=== PATIENT | male | born 1970 | race Two or more races ===

== ENCOUNTER 2019-12-28 12:47 | Inpatient (IN) | payer OTHER ==
[~2019-12-28] VITALS: Ht 177.8 cm; Wt 77.1 kg
[2019-12-28] VITALS (7 sets, daily range): BP systolic 109–133; BP diastolic 70–91
[~2019-12-28 12:47] MED LIST: ASPIR 8181 MG ORAL; ATIVAN1 MG ORAL; ATORVASTATIN CA10 MG ORAL; DILANTIN100 MG ORAL; KEPPRA500 M4 ORAL; KLONOPIN0.5 MG ORAL; LACTULOSE20 GM/301 ORAL; METOPROLOL TART25 MG ORAL; OYSTER SHELL C1 EA13 PO; TAMSULOSIN HCL0.4 MG ORAL; TRILEPTAL150 M3 PO
--- NOTE | 2019-12-28 13:29 | Emergency Room Report ---
History of Present Illness General Chief Complaint: Seizure Source: Medical Record, EMS Present Illness HPI 49-year-old male who is DNR with comfort measures only presents to the emergency department sent by shelter facility for seizure and fever x1 day. Patient has history of seizures and takes Dilantin. Per [facility] the fever did not occur prior to the seizure. This patient has past medical history of encephalopathy epilepsy, hypertension, Parkinson's, BPH, hyperlipidemia and anxiety/psychosis. This patient takes Dilantin 100 mg 3 capsules once daily. Prior laboratory results that were sent with the patient' s paperwork dated on 12 20. The patient was having a low Dilantin level of 1.2. History of present illness and ROS are limited due to patient mental status as well as limited information provided by shelter facility. Allergies: Coded Allergies: No Known Allergies (Unverified , 05/07/16) COVID-19 Screening Contact w/high risk pt: No Recent Travel to affected area: No Experienced COVID-19 symptoms?: No Patient History Past Medical History: see triage record, HTN Pertinent Family History: none Reviewed Nursing Documentation: PMH: Agreed; PSxH: Agreed Nursing Documentation-PMH Past Medical History: No Stated History Hx Hypertension: Yes History Of Psychiatric Problem: Yes - anxiety Hx Neurological Problems: Yes - rt. craniotomy, encephalopathy, parkinsons Hx Seizures: Yes Review of Systems All Other Systems: negative except mentioned in HPI Physical Exam Vital Signs Date Time Temp Pulse Resp B/P (MAP) Pulse Ox O2 Delivery O2 Flow Rate FiO2 12/27/20 12:43 100.6 140 28 112/80 (91) 95 Nasal Cannula 4.0 Sp02 EP Interpretation: reviewed, normal General Appearance: no apparent distress, alert, GCS 15, non-toxic, Chronically Ill - bedbound Head: normocephalic, atraumatic Eyes: bilateral eye normal inspection, bilateral eye PERRL ENT: hearing grossly normal, normal voice Neck: limited range of motion, other - evidence of previous tracheotomy Respiratory: chest non-tender, lungs clear, normal breath sounds, speaking full sentences Cardiovascular #1: regular rate, rhythm, no edema, tachycardia Gastrointestinal: normal bowel sounds, soft Rectal: deferred Genitourinary: other - Pt. incontinent- in adult diaper Musculoskeletal: non-tender, other - limited ROM of the extremities, evidence of moderate muscle wasting. Neurologic: alert, sensory intact, responsive - will attempt to turn his face in direction of person talking when asked multiple times. Psychiatric: judgement/insight normal Skin: other - evidence of previous tracheotomy Lymphatic: no adenopathy Medical Decision Making PA Attestation Dr. Livingston Is my supervising Physician whom patient management has been discussed with. Diagnostic Impression: Primary Impression: Pneumonia Qualified Codes: J18.9 - Pneumonia, unspecified organism Additional Impressions: Seizure disorder Subtherapeutic phenytoin level Febrile illness, acute ER Course Pt. presents to the ED c/o and witnessed seizure earlier today. - Patient is diagnosed with epilepsy and takes Depakote Ddx considered but are not limited to seizure, meningitis, infection, CVA/TIA, intracranial hemorrhage, intracranial process, nontherapeutic level of medication, infection/sepsis, COVID-19, UTI Vital signs: PT. is Tachcyardic, rectal temp. of 100.2, Pt. O2 Sat was 91-92 RA, He was placed on 2.0 Liters Nasal Cannula which brought his saturation up to 95% H&PE are most consistent with status post seizure ORDERS: -COVID-19: Pending -CMP: unremarkable -CBC: unremarkable -Total CK: WNL -CRP: 6.5 - Depakote level: 5.4 ( not in therapeutic range) -Lactic Acid: 5.10, repeat was 1.6 -UA: Most indicative of contamination: presence of equal amounts of bacteria and squamous cells, no elevation in inflammatory markers, nitrite negative. -CXR: slight consolidation in the right lower lobe w. cardiomegaly. -EKbpm sinus tach. ED INTERVENTIONS: -1g Keppra IV -500mg Dilantin IV DISPOSITION: at this time pt. will be admitted to Dr. Whitfield for PNA possible COVID-19 & Seizure disorder uncontrolled. Dr. Whitfield agreed to admit the pt. and to continue pt. care management. Labs Test 12/28/19 13:20 12/28/19 14:01 12/28/19 14:37 White Blood Count 6.3 K/UL (4.8-10.8) Red Blood Count 5.92 M/UL (4.70-6.10) Hemoglobin 18.0 G/DL (14.2-18.0) Hematocrit 51.8 % (42.0-52.0) Mean Corpuscular Volume 87 FL (80-99) Mean Corpuscular Hemoglobin 30.4 PG (27.0-31.0) Mean Corpuscular Hemoglobin Concent 34.8 G/DL (32.0-36.0) Red Cell Distribution Width 11.6 % (11.6-14.8) Platelet Count 186 K/UL (150-450) Mean Platelet Volume 8.6 FL (6.5-10.1) Neutrophils (%) (Auto) 80.2 % (45.0-75.0) Lymphocytes (%) (Auto) 13.9 % (20.0-45.0) Monocytes (%) (Auto) 5.5 % (1.0-10.0) Eosinophils (%) (Auto) 0.0 % (0.0-3.0) Basophils (%) (Auto) 0.4 % (0.0-2.0) Sodium Level 140 MMOL/L (136-145) Potassium Level 3.8 MMOL/L (3.5-5.1) Chloride Level 100 MMOL/L (98-107) Carbon Dioxide Level 24 MMOL/L (21-32) Anion Gap 16 mmol/L (5-15) Blood Urea Nitrogen 12 mg/dL (7-18) Creatinine 1.2 MG/DL (0.55-1.30) Estimat Glomerular Filtration Rate > 60 mL/min (>60) Glucose Level 122 MG/DL (74-106) Calcium Level 9.4 MG/DL (8.5-10.1) Total Bilirubin 0.2 MG/DL (0.2-1.0) Aspartate Amino Transf (AST/SGOT) 21 U/L (15-37) Alanine Aminotransferase (ALT/SGPT) 28 U/L (12-78) Alkaline Phosphatase 130 U/L (46-116) Total Creatine Kinase 46 U/L (26-308) Troponin I 0.000 ng/mL (0.000-0.056) C-Reactive Protein, Quantitative 6.5 mg/dL (0.00-0.90) Total Protein 9.4 G/DL (6.4-8.2) Albumin 3.9 G/DL (3.4-5.0) Globulin 5.5 g/dL Albumin/Globulin Ratio 0.7 (1.0-2.7) Phenytoin (Dilantin) Level 5.4 ug/mL (10-20) Urine Color Yellow Urine Appearance Turbid Urine pH 6.0 (4.5-8.0) Urine Specific [place] 1.015 (1.005-1.035) Urine Protein 2+ (NEGATIVE) Urine Glucose (UA) Negative (NEGATIVE) Urine Ketones 1+ (NEGATIVE) Urine Blood 5+ (NEGATIVE) Urine Nitrite Negative (NEGATIVE) Urine Bilirubin Negative (NEGATIVE) Urine Urobilinogen Normal MG/DL (0.0-1.0) Urine Leukocyte Esterase Negative (NEGATIVE) Urine RBC 20-30 /HPF (0 - 0) Urine WBC 0-2 /HPF (0 - 0) Urine Squamous Epithelial Cells Occasional /LPF Urine Amorphous Sediment Many /LPF (NONE) Urine Bacteria Few /HPF (NONE) Lactic Acid Level 1.60 mmol/L (0.66-2.22) EKG Diagnostic Results EP Interpretation: Dr. Livingston Rate: tachycardiac - 127 bpm Rhythm: NSR ST Segments: no acute changes ASA given to the pt in ED: No PA Scribe Text This Interpretation was scribed by MIAN Cabrera. Chest X-Ray Diagnostic Results Chest X-Ray Diagnostic Results : Chest X-Ray Ordered: Yes # of Views/Limited/Complete: 1 View Indication: Shortness of Breath EP Interpretation: Yes PA Xray: Interpretation reviewed, by supervising MD, and agrees with findings. Interpretation: no effusion, no pneumothorax, no acute cardiopulmonary disease, other - RLL Consolidation with cardiomegaly Impression: Other Electronically Signed by: Nina Cabrera PA-C Last Vital Signs Date Time Temp Pulse Resp B/P (MAP) Pulse Ox O2 Delivery O2 Flow Rate FiO2 12/28/19 12:43 100.6 140 28 112/80 (91) 95 Nasal Cannula 4.0 Disposition: ADMITTED INPATIENT Condition: Serious Referrals: Kenji Lema MD (PCP) Nina Cabrera Dec 28, 2019 13:28
[2019-12-28 13:40] LABS: BASOPHILS % (AUTO) 0.4 % (0.0-2.0); HEMATOCRIT 51.8 % (42.0-52.0); LYMPHOCYTES % (AUTO) 13.9 % (20.0-45.0); MEAN CORPUSCULAR VOLUME 87 FL (80-99); MONOCYTES % (AUTO) 5.5 % (1.0-10.0); NEUTROPHILS % (AUTO) 80.2 % (45.0-75.0); PLATELET COUNT 186 K/UL (150-450); RED BLOOD COUNT 5.92 M/UL (4.70-6.10); RED CELL DISTRIBUTION WIDTH 11.6 % (11.6-14.8); WHITE BLOOD COUNT 6.3 K/UL (4.8-10.8)
[2019-12-28] MEDS ORDERED: levETIRAcetam 1,000mg/NS100ml 100 ML IVPB ONE (13:45)
[2019-12-28 14:01] LABS: ANION GAP 16 mmol/L (5-15); BLOOD UREA NITROGEN 12 mg/dL (7-18); CALCIUM 9.4 MG/DL (8.5-10.1); CARBON DIOXIDE 24 MMOL/L (21-32); CHLORIDE 100 MMOL/L (98-107); CREATININE 1.2 MG/DL (0.55-1.30); POTASSIUM 3.8 MMOL/L (3.5-5.1); SODIUM 140 MMOL/L (136-145)
[2019-12-28 14:05] LABS: ALANINE AMINOTRANSFERASE 28 U/L (12-78); ALBUMIN 3.9 G/DL (3.4-5.0); ALBUMIN/GLOBULIN RATIO 0.7 (1.0-2.7); ALKALINE PHOSPHATASE 130 U/L (46-116); ASPARTATE AMINO TRANSFERASE 21 U/L (15-37); BILIRUBIN,TOTAL 0.2 MG/DL (0.2-1.0); CREATINE KINASE 46 U/L (26-308)
--- NOTE | 2019-12-28 14:11 | Diagnostic Imaging Report ---
Indication: Chest pain Technique: XRAY Chest 1v Comparison: None Findings: Heart appears enlarged. Mediastinal contours are sharp. There is elevation of the right hemidiaphragm and streaky opacities at the right base. No pleural effusion or pneumothorax. No acute osseous abnormality. IMPRESSION: Elevation of the right hemidiaphragm with adjacent linear opacities at the right lung base which may be related to subsegmental atelectasis or scarring. Correlate clinically to exclude the possibility of subtle developing infectious infiltrate/pneumonia. Apparent cardiomegaly although heart size may be exaggerated by AP technique.
[2019-12-28 15:08] LABS: APPEARANCE,URINE TURBID; BILIRUBIN, URINE NEGATIVE (NEGATIVE); GLUCOSE, URINE (UA) NEGATIVE (NEGATIVE); KETONES,URINE 1+ (NEGATIVE); NITRITE,URINE NEGATIVE (NEGATIVE); UROBILINOGEN,URINE NORMAL MG/DL (0.0-1.0)
[2019-12-28] MEDS ORDERED: Azithromycin 500 MG in D5W 275 ML IVPB ONE (15:15)
[2019-12-28] MEDS ORDERED: Lidocaine 1% MPF 10mg/ml 5ml INJ ONE (15:15)
[2019-12-28 15:26] LABS: COLOR,URINE YELLOW
[2019-12-28 15:27] LABS: LEUKOCYTE ESTERASE ,URINE NEGATIVE (NEGATIVE); PROTEIN,URINE 2+ (NEGATIVE)
[2019-12-28] MEDS ORDERED: Acetaminophen 650 MG SUPP RECTAL ONE (15:30)
[2019-12-28] MEDS ORDERED: Phenytoin 500 MG in NS 110 ML IVPB ONE (17:15)
[2019-12-28 19:22] LABS: FERRITIN 194 NG/ML (8-388); LACTATE DEHYDROGENASE 147 U/L (81-234)
[2019-12-28] MEDS ORDERED: Vancomycin 1.5 GM in NS 275 ML IVPB ONE (21:30)
[2019-12-28] MEDS ORDERED: Vancomycin 1.5gm/NS Premix IVPB ONE (21:30)
[2019-12-29] MEDS ORDERED: Aztreonam Inj 2 GM in NS 110 ML IVPB SCH ×5 (01:00→04:00)
[2019-12-29 05:23] LABS: BASOPHILS % (AUTO) 0.4 % (0.0-2.0); EOSINOPHILS % (AUTO) 0.1 % (0.0-3.0); HEMATOCRIT 40.8 % (42.0-52.0); HEMOGLOBIN 14.6 G/DL (14.2-18.0); LYMPHOCYTES % (AUTO) 32.8 % (20.0-45.0); MEAN CORPUSCULAR VOLUME 87 FL (80-99); MONOCYTES % (AUTO) 13.6 % (1.0-10.0); NEUTROPHILS % (AUTO) 53.1 % (45.0-75.0); PLATELET COUNT 156 K/UL (150-450); RED CELL DISTRIBUTION WIDTH 11.5 % (11.6-14.8); WHITE BLOOD COUNT 5.3 K/UL (4.8-10.8)
[2019-12-29 05:55] LABS: ALANINE AMINOTRANSFERASE 28 U/L (12-78); ALBUMIN 3.2 G/DL (3.4-5.0); ALBUMIN/GLOBULIN RATIO 0.8 (1.0-2.7); ALKALINE PHOSPHATASE 93 U/L (46-116); ANION GAP 14 mmol/L (5-15); ASPARTATE AMINO TRANSFERASE 25 U/L (15-37); BILIRUBIN,TOTAL 0.2 MG/DL (0.2-1.0); BLOOD UREA NITROGEN 8 mg/dL (7-18); CALCIUM 7.6 MG/DL (8.5-10.1); CARBON DIOXIDE 25 MMOL/L (21-32); CHLORIDE 106 MMOL/L (98-107); CREATININE 0.8 MG/DL (0.55-1.30); POTASSIUM 3.5 MMOL/L (3.5-5.1); SODIUM 144 MMOL/L (136-145)
[2019-12-29] MEDS ORDERED: Azithromycin 500 MG in D5W 275 ML IVPB SCH (09:00)
[2019-12-29] MEDS ORDERED: Phenytoin 100mg cap ORAL SCH ×2 (09:00→21:00)
[2019-12-29] MEDS ORDERED: cefTRIAXone 2 GM in D5W 55 ML IVPB SCH (10:00)
[2019-12-29] MEDS: Lactulose 20gm/30ml UDC ORAL SCH ×2 (10:02→18:00)
[2019-12-29] MEDS: OXcarbazepine 150mg tab ORAL SCH ×2 (10:12→23:10)
[2019-12-29] MEDS: clonazePAM 0.5mg tab ORAL SCH (10:12)
[2019-12-29] MEDS: Calcium Carbonate 500mg w/Vit D 200iu tab ORAL SCH (10:12)
[2019-12-29] MEDS: Aspirin EC 81mg tab ORAL SCH (10:12)
[2019-12-29] MEDS: Aztreonam Inj 2 GM in NS 110 ML IVPB SCH ×2 (10:13→20:38)
[2019-12-29] MEDS: Vancomycin 1.25gm/NS Premix IVPB SCH ×2 (10:17→23:08)
--- NOTE | 2019-12-29 10:29 | History & Physical ---
History and Physical History & Physicial seen and examined. Full Dictation completed Caleb Whitfield MD Dec 29, 2019 10:29
--- NOTE | 2019-12-29 10:31 | General Progress Note ---
Assessment/Plan Assessment/Plan: Dictatin in progress. 1- Acute Sz D/o 2- Posit ictal fever 3- DNR/DNI 4. Acute ICH Plan: pending cultures less likely infectious ,I will D/C empirical abx Head CT I will stop ASA, A call is made to [facility] , Aunt ( Charli Curran) Neurology consult ( Dr Haas) Subjective Allergies: Coded Allergies: No Known Allergies (Unverified , 05/07/16) Objective Last 24 Hour Vital Signs Date Time Temp Pulse Resp B/P (MAP) Pulse Ox O2 Delivery O2 Flow Rate FiO2 12/29/19 10:11 103 121/81 12/29/19 04:00 2.0 12/29/19 04:00 101 12/29/19 02:26 Nasal Cannula 2.0 12/29/19 00:27 102 12/29/19 00:10 98.2 97 18 133/90 100 Nasal Cannula 2.0 97 12/28/19 23:53 97 12/28/19 22:51 104 133/90 100 Nasal Cannula 2.0 12/28/19 22:17 109 18 129/91 100 Nasal Cannula 2.0 12/28/19 21:30 98.2 118 21 122/77 97 Nasal Cannula 2.0 97 12/28/19 19:12 98.2 115 21 112/70 95 Nasal Cannula 2.0 97 12/28/19 18:06 98.6 108 29 109/75 93 Nasal Cannula 2.0 97 12/28/19 16:25 99.8 12/28/19 16:00 99.7 132 33 116/81 98 Nasal Cannula 2.0 12/28/19 13:30 140 40 Nasal Cannula 2.0 97 12/28/19 13:30 100.2 140 40 112/80 97 Nasal Cannula 2.0 12/28/19 12:43 100.6 140 28 112/80 (91) 95 Nasal Cannula 4.0 Intake and Output 12/28/19 12/29/19 19:00 07:00 Intake Total 0 ml Balance 0 ml Intake Oral 0 ml # Voids 2 Laboratory Tests 12/28/19 13:20: White Blood Count 6.3, Red Blood Count 5.92, Hemoglobin 18.0, Hematocrit 51.8, Mean Corpuscular Volume 87, Mean Corpuscular Hemoglobin 30.4, Mean Corpuscular Hemoglobin Concent 34.8, Red Cell Distribution Width 11.6, Platelet Count 186, Mean Platelet Volume 8.6, Neutrophils (%) (Auto) 80.2H, Lymphocytes (%) (Auto) 13.9L, Monocytes (%) (Auto) 5.5, Eosinophils (%) (Auto) 0.0, Basophils (%) (Auto ) 0.4, Sodium Level 140, Potassium Level 3.8, Chloride Level 100, Carbon Dioxide Level 24, Anion Gap 16H, Blood Urea Nitrogen 12, Creatinine 1.2, Estimat Glomerular Filtration Rate > 60, Glucose Level 122H, Lactic Acid Level 5.10H, Calcium Level 9.4, Total Bilirubin 0.2, Aspartate Amino Transf (AST/SGOT ) 21, Alanine Aminotransferase (ALT/SGPT) 28, Alkaline Phosphatase 130H, Total Creatine Kinase 46, Troponin I 0.000, C-Reactive Protein, Quantitative 6.5H, Total Protein 9.4H, Albumin 3.9, Globulin 5.5, Albumin/Globulin Ratio 0.7L, Phenytoin (Dilantin) Level 5.4L 12/28/19 14:01: Urine Color Yellow, Urine Appearance Turbid, Urine pH 6.0, Urine Specific [place] 1.015, Urine Protein 2+H, Urine Glucose (UA) Negative, Urine Ketones 1+H , Urine Blood 5+H, Urine Nitrite Negative, Urine Bilirubin Negative, Urine Urobilinogen Normal, Urine Leukocyte Esterase Negative, Urine RBC 20-30H, Urine WBC 0-2, Urine Squamous Epithelial Cells Occasional, Urine Amorphous Sediment ManyH, Urine Bacteria Few 12/28/19 14:37: Lactic Acid Level 1.60 12/28/19 18:22: D-Dimer 2.81H, Ferritin 194, Lactate Dehydrogenase 147 12/29/19 04:16: White Blood Count 5.3, Red Blood Count 4.70, Hemoglobin 14.6, Hematocrit 40.8L, Mean Corpuscular Volume 87, Mean Corpuscular Hemoglobin 31.0, Mean Corpuscular Hemoglobin Concent 35.7, Red Cell Distribution Width 11.5L, Platelet Count 156, Mean Platelet Volume 8.2, Neutrophils (%) (Auto) 53.1, Lymphocytes (%) (Auto) 32.8, Monocytes (%) (Auto) 13.6H, Eosinophils (%) (Auto) 0.1, Basophils (%) ( Auto) 0.4, Sodium Level 144, Potassium Level 3.5, Chloride Level 106, Carbon Dioxide Level 25, Anion Gap 14, Blood Urea Nitrogen 8, Creatinine 0.8, Estimat Glomerular Filtration Rate > 60, Glucose Level 95, Hemoglobin A1c 5.8, Calcium Level 7.6L, Total Bilirubin 0.2, Aspartate Amino Transf (AST/SGOT) 25, Alanine Aminotransferase (ALT/SGPT) 28, Alkaline Phosphatase 93, Pro-B-Type Natriuretic Peptide 135H, Total Protein 7.3, Albumin 3.2L, Globulin 4.1, Albumin/Globulin Ratio 0.8L Height (Feet): 5 Height (Inches): 10.00 Weight (Pounds): 170 Caleb Whitfield MD Dec 29, 2019 10:31
--- NOTE | 2019-12-29 11:31 | Consultation ---
Consult Note Consult Note [facility] NEUROLOGY CONSULTATION December 29, [address] Whitfield, I evaluated Mr. Bautista and my assesement is as follows. HISTORY: Mr. Hao Bautista is a 49-year-old, right-handed, gentleman, who does have a past history of hypertension, dyslipidemia, psychosis, left-sided weakness, and epilepsy with questionable type of seizures for which she is on Dilantin 300 mg daily. He apparently lives in a [facility] and had a breakthrough seizure as a result of which she was brought into the [facility] emergency room on 12/28/2019. On being evaluated in the emergency room he had a temperature elevated to 100.8 F, he was also tachycardic and tachypneic. His Dilantin level was subtherapeutic. A chest x-ray revealed a questionable pneumonic process. This consultation was requested to evaluate and manage the patient's seizures. The patient himself was unable to give any history. PAST HISTORY: Hypertension, dyslipidemia, psychosis, left-sided weakness, and epilepsy with questionable type of seizures FAMILY HISTORY: The patient denies any family history of seizures. He also denies any other neurological problems. PERSONAL HISTORY: Home: He lives in a [facility]. Work: He is unemployed. He is unable to tell me what he did in the past. Habits: He denies use of alcohol tobacco or illicit drugs. ALLERGIES: No known allergies. NEUROLOGIC REVIEW OF SYSTEMS: Unable to obtain accurately. PHYSICAL EXAMINATION: GENERAL: The patient is a well developed, well nourished, , gentlema, lying in bed, in no acute distress. VITAL SIGNS: Pulse: 103/minute and regular. Blood Pressure: 121/81 mm of Hg. Respirations: 18/minute Temperature: 98.2 F. HEAD: Normocephalic and atraumatic. NECK: No neck rigidity was observed. EENT: Benign. NEUROLOGIC EXAMINATION: MENTAL STATUS EXAMINATION: He was awake and alert. He was oriented to self only. He was able to recall 3/3 words immediately but could not remember any of them in 1 minute and 3 minutes. He was unable to tell me who the present president is. He was unable to cooperate for further mental status testing. SPEECH: He had a moderate dysarthria. LANGUAGE: He had problems with comprehension and expression of language. CRANIAL NERVE EXAMINATION: II: The visual muller were intact to confrontation testing. III, IV, : External ocular movements were full and pupils 3 mm in diameter equal, round, regular and reactive to light. V: The facial sensations were normal, and the temporales, masseters and pterygoids functioned normally. VII: He had a left seventh central facial paresis. VIII: He was able to hear well bilaterally and had no nystagmus. IX: The palate moved symmetrically on phonation. X: There was no hoarseness of voice. XI: The sternocleidomastoids and trapezii functioned normally. XII: The tongue was in the midline without any fasciculations or atrophy. MOTOR SYSTEM: The tone was increased in all 4 extremities with spasticity more marked on the left than on the right. Examination of muscle mass revealed bilateral ankle cord contractures. Examination of power was exceedingly difficult to perform due to varying degrees of cooperation. He however had a definite left greater than right paresis. SENSORY EXAMINATION: He responded appropriately to deep pain but could not cooperate for the sensory modalities. COORDINATION: Could not be tested. REFLEXES: 1+ on the right and 1++ on the left at the biceps, triceps, brachioradialis, and knees. 0 at both ankles. The plantar responses were flexor bilaterally. STANCE & GAIT: Not be tested. DIAGNOSTIC IMPRESSION: 1. Mr. Hao Bautista is a 49-year-old, right-handed, gentleman, who does have a past history of hypertension, dyslipidemia, psychosis, left-sided weakness, and epilepsy with questionable type of seizures for which she is on Dilantin 300 mg daily. 2. He apparently lives in a [facility] and had a breakthrough seizure as a result of which she was brought into the [facility] emergency room on 12/28/2019. On being evaluated in the emergency room he had a temperature elevated to 100.8 F, he was also tachycardic and tachypneic. His Dilantin level was subtherapeutic. A chest x-ray revealed a questionable pneumonic process. 3. On neurological examination, at this time, he has significant problems with orientation, recent and remote memory, and other cognitive function. He also has a significant dysarthria and in addition language problems. He is definitely weaker on the left side compared to the right and his deep tendon reflexes are also brisker on the left side compared to the right. 4. 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 RECOMMENDATIONS: 1. Agree with management thus far. 2. Agree with obtaining a CT scan of the brain to exclude acute intracranial pathology. 3. We will change the patient anticonvulsant to Keppra 1 g every 12 hours. 4. An EEG will be ordered to evaluate the patient for type of seizure disorder. 5. Continue to correct metabolic imbalances and treat questionable infection as deemed necessary. Thank you for entrusting me to take care of Mr. Bautista's Neurologic needs. I shall follow him with you. Sincerely, Mukesh Haas M.D., M.S.P.H. Neurologist & Clinical Neurophysiologist Mukesh Haas MD Dec 29, 2019 11:31
--- NOTE | 2019-12-29 12:32 | Diagnostic Imaging Report ---
Indications: Seizure Technique: Spiral acquisitions obtained through the brain. Angled axial and coronal 5 x 5 mm slices were reconstructed. Total dose length product 1098 mGycm. CTDI vol(s) 53 mGy. Dose reduction achieved using automated exposure control Comparison: 05/07/2016 Findings: Again demonstrated is prior right convexity craniectomy. There is a large area of encephalomalacia involving the right frontal lobe and extending well into the basal ganglia region again demonstrated. There is a less extensive but still sizable area of infiltration again demonstrated involving the left frontal lobe. 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 There is marked ex vacuo dilatation of the frontal horn of the left lateral ventricle. A focus of hyperattenuation measuring 7 mm in diameter is seen in the high right anterior frontal cortex, image 21 series 7. A similar 7 mm focus is seen in the right parietal cortex, image 19 series 7. A punctate focus of high attenuation, 3 mm in diameter, is seen at the surface of the area of encephalomalacia included frontal lobe. Yet another focus measuring 9 mm diameter is seen within the inferior right frontal cortex peripheral to the area of encephalomalacia. These do not exhibit associated edema and there is no associated mass effect. No mass effect. Midline shift to the right is stable, is presumably an ex vacuo phenomenon related to the absence of cranium. There is some calcification within the right cranial membrane flap. 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 A lucency through the frontal calvarium just to the right of midline is also evident on the prior study. Impression: Multiple high attenuation foci in the right frontal and parietal cortex, likely representing small acute hemorrhages. Etiology not demonstrated. Contrast MRI may be useful to clarify if clinically indicated. No associated mass effect Extensive chronic and postsurgical changes, as described above and on prior study of 05/07/2018 Clinical value findings phoned to Dr. Whitfield at the time of interpretation The CT scanner at [facility] is accredited by the [employer] and the scans are performed using protocols designed to limit radiation exposure to as low as reasonably achievable to attain images of sufficient resolution adequate for diagnostic evaluation.
--- NOTE | 2019-12-29 16:30 | History and Physical Report ---
DATE OF ADMISSION: 12/28/2019 SOURCE OF INFORMATION: The patient and EMR. HISTORY OF PRESENT ILLNESS: The patient is a 49-year-old male with history of seizure disorder who had a witnessed seizure episodes followed by abnormal high temperature. The patient was transferred for additional evaluation. At the time of evaluation, the patient is incoherent, at his baseline. Otherwise appears comfortable. No reported , cough. However, this did not limit medical evaluation. REVIEW OF SYSTEMS: Limited as above. PAST MEDICAL HISTORY: Including but not limited to chronic encephalopathy, seizure disorder, decline in cognition, hyperlipidemia, hypertension. FAMILY HISTORY: Not obtainable. SOCIAL HISTORY: The patient resides in the retirement facility. No documented history of illicit drug abuse or alcohol abuse noted. MEDICATIONS: Current snf medications including, but not limited to atorvastatin, Keppra, metoprolol, Trileptal, phenytoin. PHYSICAL EXAMINATION: VITAL SIGNS: Blood pressure 110/80, temperature 100.6, pulse rate 140, respiratory rate 18, pulse oximetry 98% on 2 L of oxygen. HEAD AND NECK: Atraumatic and normocephalic. CHEST: Negative for acute pathology. No wheezing. No crackles. HEART: S1 and S2. Regular rate and rhythm. ABDOMEN: Soft. No organomegaly. MUSCULOSKELETAL: Left-sided hemiparesis. NEUROLOGIC: The patient is awake and alert x1. LABORATORY AND DIAGNOSTIC DATA: Labs dated 12/28/2019 showed WBC 6.3. Lactic acid 5.1. C-reactive protein 6.5. BNP 135. LDH 147. Phenytoin 5.4. ASSESSMENT: 1. Acute breakthrough seizure secondary to subtherapeutic serum antiepileptic medications. 2. Hypertension. 3. Fever, likely postictal, possibility of COVID-19 infection cannot be excluded. 4. Chronic encephalopathy with decline in cognition. 5. Hyperlipidemia. 6. GI and DVT prophylaxis. PLAN OF CARE: 1. Status post IV antiepileptic administration. 2. We will continue snf medications. 3. Continue with seizure precautions. 4. Infectious Diseases, Pulmonary, and Cardiology have been consulted. 5. I will obtain CT of the head. Caleb Whitfield M.D. DR: Rebecca JOB#: [id number] CC:
--- NOTE | 2019-12-29 17:00 | Consultation ---
DATE OF CONSULTATION: 12/29/2019 PULMONARY CONSULTATION HISTORY OF PRESENT ILLNESS: This is a 49-year-old male who is noted to be DNR. He is a resident at a local nursing facility. The patient was noted to have seizures and also was febrile. He was brought to the hospital for subsequent management and care. He is currently on Dilantin. PAST MEDICAL HISTORY: Notable for encephalopathy, seizure disorder, hypertension, Parkinson's, BPH, hyperlipidemia, chronic anxiety, and psychosis. PAST SURGICAL HISTORY: None reported except for craniotomy. Past history as discussed above. HOME MEDICATIONS: Include Dilantin, however, the level has been low in the past. REVIEW OF SYSTEMS: Not obtainable. PHYSICAL EXAMINATION: GENERAL: Reveals a 49-year-old male. VITAL SIGNS: Blood pressure 120/80, heart rate 104, respiratory rate 18, O2 saturation 97% on 2 L of oxygen. HEENT: Remarkable only for previous craniotomy. CHEST: Clear breath sounds bilaterally with normal heart sounds. ABDOMEN: Soft. EXTREMITIES: There is no edema. LABORATORY DATA: Lab testing shows normal CBC and BMP. Lactic acid 5.1 now 1.6. C-reactive protein 6.5. Dilantin level is 5.4. Urinalysis shows few pus cells. IMAGING STUDIES: X-ray chest was obtained, which shows mild cardiomegaly. IMPRESSION: 1. Seizure disorder. 2. Subtherapeutic Dilantin level. 3. Parkinson's. 4. Previous craniotomy. DISCUSSION: Admitted to the hospital. Continue current medications and care. Hold off antibiotics. The patient needs to be reloaded with Dilantin. I note this patient has been started on Azactam, lactulose, Keppra. He is also on Dilantin. I would recommend the initiation of Neurology consultation. We will follow carefully. Josh Hudson M.D. DR: Rajani JOB#: [id number] CC:
--- NOTE | 2019-12-29 17:32 | Infectious Diseases Prog Note ---
Assessment/Plan Problems: (1) Suspected COVID-19 virus infection Assessment & Plan: continue enhanced droplets isolation with antibiotics pending PCR result (2) Febrile illness, acute Assessment & Plan: possible viral pneumonia , continue antibiotics with vancomycin and aztreonam for now pending cultures and PCR test (3) Seizure disorder Assessment & Plan: continue keppra to control his seizure with precaution, continue antibiotics to cover for possible infection pending cultures and COVID 19 PCR test Subjective Allergies: Coded Allergies: No Known Allergies (Unverified , 05/07/16) Objective Vital Signs Last 24 Hour Vital Signs Date Time Temp Pulse Resp B/P (MAP) Pulse Ox O2 Delivery O2 Flow Rate FiO2 12/29/19 16:14 2.0 12/29/19 12:12 2.0 12/29/19 12:00 98 12/29/19 10:11 103 121/81 12/29/19 09:00 Nasal Cannula 2.0 12/29/19 08:50 2.0 12/29/19 08:00 85 12/29/19 04:00 2.0 12/29/19 04:00 101 12/29/19 02:26 Nasal Cannula 2.0 12/29/19 00:27 102 12/29/19 00:10 98.2 97 18 133/90 100 Nasal Cannula 2.0 97 12/28/19 23:53 97 12/28/19 22:51 104 133/90 100 Nasal Cannula 2.0 12/28/19 22:17 109 18 129/91 100 Nasal Cannula 2.0 12/28/19 21:30 98.2 118 21 122/77 97 Nasal Cannula 2.0 97 12/28/19 19:12 98.2 115 21 112/70 95 Nasal Cannula 2.0 97 12/28/19 18:06 98.6 108 29 109/75 93 Nasal Cannula 2.0 97 Height (Feet): 5 Height (Inches): 10.00 Weight (Pounds): 170 Microbiology Date/Time Source Procedure Growth Status 12/28/19 15:53 Rectum Received Laboratory Tests Test 12/28/19 18:22 12/29/19 04:16 D-Dimer 2.81 mg/L FEU (0.00-0.49) H Ferritin 194 NG/ML (8-388) Lactate Dehydrogenase 147 U/L (81-234) White Blood Count 5.3 K/UL (4.8-10.8) Red Blood Count 4.70 M/UL (4.70-6.10) Hemoglobin 14.6 G/DL (14.2-18.0) Hematocrit 40.8 % (42.0-52.0) L Mean Corpuscular Volume 87 FL (80-99) Mean Corpuscular Hemoglobin 31.0 PG (27.0-31.0) Mean Corpuscular Hemoglobin Concent 35.7 G/DL (32.0-36.0) Red Cell Distribution Width 11.5 % (11.6-14.8) L Platelet Count 156 K/UL (150-450) Mean Platelet Volume 8.2 FL (6.5-10.1) Neutrophils (%) (Auto) 53.1 % (45.0-75.0) Lymphocytes (%) (Auto) 32.8 % (20.0-45.0) Monocytes (%) (Auto) 13.6 % (1.0-10.0) H Eosinophils (%) (Auto) 0.1 % (0.0-3.0) Basophils (%) (Auto) 0.4 % (0.0-2.0) Sodium Level 144 MMOL/L (136-145) Potassium Level 3.5 MMOL/L (3.5-5.1) Chloride Level 106 MMOL/L (98-107) Carbon Dioxide Level 25 MMOL/L (21-32) Anion Gap 14 mmol/L (5-15) Blood Urea Nitrogen 8 mg/dL (7-18) Creatinine 0.8 MG/DL (0.55-1.30) Estimat Glomerular Filtration Rate > 60 mL/min (>60) Glucose Level 95 MG/DL (74-106) Hemoglobin A1c 5.8 % (4.3-6.0) Calcium Level 7.6 MG/DL (8.5-10.1) L Total Bilirubin 0.2 MG/DL (0.2-1.0) Aspartate Amino Transf (AST/SGOT) 25 U/L (15-37) Alanine Aminotransferase (ALT/SGPT) 28 U/L (12-78) Alkaline Phosphatase 93 U/L (46-116) Pro-B-Type Natriuretic Peptide 135 pg/mL (0-125) H Total Protein 7.3 G/DL (6.4-8.2) Albumin 3.2 G/DL (3.4-5.0) L Globulin 4.1 g/dL Albumin/Globulin Ratio 0.8 (1.0-2.7) L Current Medications Medications (Trade) Dose Ordered Sig/Pankaj Route PRN Reason Start Time Stop Time Status Last Admin Dose Admin Aspirin (Ecotrin) 81 mg DAILY ORAL 12/29/19 09:00 02/12/20 08:59 12/29/19 10:12 Atorvastatin Calcium (Lipitor) 10 mg BEDTIME ORAL 12/29/19 21:00 03/28/20 20:59 Azithromycin 500 mg/Dextrose 275 ml @ 275 mls/hr BID IVPB 12/29/19 09:00 01/03/20 08:59 UNV Aztreonam 2 gm/ Sodium Chloride 110 ml @ 220 mls/hr Q12H IVPB 12/29/19 08:00 01/05/20 07:59 12/29/19 10:13 Calcium/Vitamin D (OsCal D) 1 tab DAILY ORAL 12/29/19 09:00 03/28/20 08:59 12/29/19 10:12 Ceftriaxone Sodium 2 gm/ Dextrose 55 ml @ 110 mls/hr Q24HRS IVPB 12/29/19 10:00 01/05/20 09:59 UNV Clonazepam (KlonoPIN) 0.5 mg DAILY ORAL 12/29/19 09:00 01/05/20 08:59 12/29/19 10:12 Lactulose (Cephulac) 20 gm BID ORAL 12/29/19 09:00 01/28/20 08:59 Levetiracetam (Keppra) 1,000 mg Q12HR ORAL 12/29/19 21:00 02/12/20 20:59 Lorazepam (Ativan) 1 mg EVERY 8 HOURS PRN ORAL For Anxiety 12/29/19 02:15 01/05/20 02:14 Metoprolol Tartrate (Lopressor) 25 mg EVERY 12 HOURS ORAL 12/29/19 09:00 03/28/20 08:59 12/29/19 10:11 Oxcarbazepine (TrileptaL) 150 mg BID@0900,2100 ORAL 12/29/19 09:00 02/12/20 08:59 12/29/19 10:12 Tamsulosin HCl (Flomax) 0.4 mg BEDTIME ORAL 12/29/19 21:00 01/28/20 20:59 Vancomycin HCl (Vanco rx to dose) 1 ea DAILY PRN MISC Per rx protocol 12/28/19 17:45 01/27/20 17:44 Vancomycin/Sodium Chloride 275 ml @ 183.333 mls/hr Q12H IVPB 12/29/19 09:00 01/03/20 08:59 12/29/19 10:17 Katherine Fagan M.D. Dec 29, 2019 17:32
[2019-12-29 20:00] VITALS: BP 121/63
--- NOTE | 2019-12-29 21:46 | Cardiology Progress Note ---
Assessment/Plan Assessment/Plan The patient is seen and examined, full consult note is dictated. Objective Last 24 Hour Vital Signs Date Time Temp Pulse Resp B/P (MAP) Pulse Ox O2 Delivery O2 Flow Rate FiO2 12/29/19 16:14 2.0 12/29/19 15:52 87 12/29/19 12:12 2.0 12/29/19 12:00 98 12/29/19 10:11 103 121/81 12/29/19 09:00 Nasal Cannula 2.0 12/29/19 08:50 2.0 12/29/19 08:00 85 12/29/19 04:00 2.0 12/29/19 04:00 101 12/29/19 02:26 Nasal Cannula 2.0 12/29/19 00:27 102 12/29/19 00:10 98.2 97 18 133/90 100 Nasal Cannula 2.0 97 12/28/19 23:53 97 12/28/19 22:51 104 133/90 100 Nasal Cannula 2.0 12/28/19 22:17 109 18 129/91 100 Nasal Cannula 2.0 Intake and Output 12/28/19 12/29/19 19:00 07:00 Intake Total 0 ml Balance 0 ml Intake Oral 0 ml # Voids 2 Laboratory Tests Test 12/29/19 04:16 White Blood Count 5.3 K/UL (4.8-10.8) Red Blood Count 4.70 M/UL (4.70-6.10) Hemoglobin 14.6 G/DL (14.2-18.0) Hematocrit 40.8 % (42.0-52.0) L Mean Corpuscular Volume 87 FL (80-99) Mean Corpuscular Hemoglobin 31.0 PG (27.0-31.0) Mean Corpuscular Hemoglobin Concent 35.7 G/DL (32.0-36.0) Red Cell Distribution Width 11.5 % (11.6-14.8) L Platelet Count 156 K/UL (150-450) Mean Platelet Volume 8.2 FL (6.5-10.1) Neutrophils (%) (Auto) 53.1 % (45.0-75.0) Lymphocytes (%) (Auto) 32.8 % (20.0-45.0) Monocytes (%) (Auto) 13.6 % (1.0-10.0) H Eosinophils (%) (Auto) 0.1 % (0.0-3.0) Basophils (%) (Auto) 0.4 % (0.0-2.0) Sodium Level 144 MMOL/L (136-145) Potassium Level 3.5 MMOL/L (3.5-5.1) Chloride Level 106 MMOL/L (98-107) Carbon Dioxide Level 25 MMOL/L (21-32) Anion Gap 14 mmol/L (5-15) Blood Urea Nitrogen 8 mg/dL (7-18) Creatinine 0.8 MG/DL (0.55-1.30) Estimat Glomerular Filtration Rate > 60 mL/min (>60) Glucose Level 95 MG/DL (74-106) Hemoglobin A1c 5.8 % (4.3-6.0) Calcium Level 7.6 MG/DL (8.5-10.1) L Total Bilirubin 0.2 MG/DL (0.2-1.0) Aspartate Amino Transf (AST/SGOT) 25 U/L (15-37) Alanine Aminotransferase (ALT/SGPT) 28 U/L (12-78) Alkaline Phosphatase 93 U/L (46-116) Pro-B-Type Natriuretic Peptide 135 pg/mL (0-125) H Total Protein 7.3 G/DL (6.4-8.2) Albumin 3.2 G/DL (3.4-5.0) L Globulin 4.1 g/dL Albumin/Globulin Ratio 0.8 (1.0-2.7) L Microbiology Date/Time Source Procedure Growth Status 12/28/19 15:53 Rectum Received Peter العلي MD Dec 29, 2019 21:46
[2019-12-29] MEDS: Tamsulosin 0.4mg cap ORAL SCH (23:09)
[2019-12-29] MEDS: Heparin 5000 units/ml inj SUBQ SCH (23:11)
[2019-12-30] VITALS: BP 123/63
[2019-12-30 04:00] VITALS: BP 104/73
[2019-12-30 08:00] VITALS: BP 102/73
[2019-12-30] MEDS: Aztreonam Inj 2 GM in NS 110 ML IVPB SCH ×2 (08:15→20:00)
--- NOTE | 2019-12-30 08:43 | Consultation ---
DATE OF CONSULTATION: 12/29/2019 INFECTIOUS DISEASE CONSULTATION CONSULTING PHYSICIAN: Katherine Fagan M.D. REFERRING PHYSICIAN: Caleb Whitfield M.D. REASON FOR CONSULTATION: Fever, possible viral pneumonia and COVID-19 infection. Recommendation for antimicrobial treatment and further care. HISTORY OF PRESENT ILLNESS: Patient is a 49-year-old male with past medical history of seizure disorder, hypertension, anxiety, encephalopathy, Parkinson disease status post craniotomy, who was DNR with comfort measures, who was sent to [facility] emergency room by his assisted facility for recurrent episode of seizure and fever for 24 hours. Patient apparently had history of seizure and he was on Dilantin and as per the alf report, he had a fever. Patient had low Dilantin level as per the report and when he arrived to the emergency room, his temperature was 100.6 with pulse of 140 concerning for sepsis. So, he was given antibiotics in the emergency room and had a nasal swab for COVID-19 viral tests. An Infectious Disease consultation was requested for antibiotics treatment and further management. As of note, patient is poor historian, could not provide good history. Most of the information was obtained from the medical record and nursing staff. REVIEW OF SYSTEMS: Unable to obtain. Patient is poor historian, cannot provide any history. PAST MEDICAL HISTORY: Significant for hypertension, seizure disorder, Parkinson disease, anxiety disorder. PAST SURGICAL HISTORY: He had craniotomy for unclear reasons. SOCIAL HISTORY: He lives at assisted facility. No recent drugs, tobacco, or alcohol. He is retired. ALLERGIES: No known drug allergy. MEDICATIONS: Patient received ceftriaxone and Zithromax in the emergency room. For the rest of his medications, please refer to MAR. LABORATORY DATA: Laboratory showed white count of 6.3, hemoglobin of 18, platelet count 186. BUN of 8, creatinine of 0.8. Lactic acid of 5.1. D-dimer of 2.81. IMAGING: Chest x-ray showed elevation of right hemidiaphragm with adjacent linear opacity at the right lung base. This may be related to subsegmental atelectasis or scarring. Possibility of developing infection or pneumonia cannot be ruled out. PHYSICAL EXAMINATION: VITAL SIGNS: Temperature 98, blood pressure 121/81, saturation 100% on nasal cannula 2 liters, respirations 18, pulse 97. GENERAL: Middle-aged male, lying in bed. Lethargic, altered, not in acute distress. Nonverbal. HEENT: Normocephalic and atraumatic. Pupils are reactive to light. Pale sclerae. Dry oral mucosa. NECK: Supple. No lymphadenopathy. CARDIOVASCULAR: Tachycardic. S1, S2 normal. No murmur or gallop. LUNGS: He had diminished breathing sounds at the bases. No wheezing. No rhonchi. Normal breathing efforts. ABDOMEN: Soft, nontender, nondistended. Normal bowel sounds. No hepatosplenomegaly or ascites. EXTREMITIES: No edema or cyanosis. ASSESSMENT AND RECOMMENDATION: 1. Suspected COVID-19 virus infection. Continue enhanced droplet isolation with antibiotics for now pending PCR result. Monitor laboratories closely. We will order D-dimer, C-reactive protein, ferritin level, and LDH. 2. Febrile illness, acute possible viral pneumonia. Continue antibiotics with vanc, aztreonam for now pending blood culture and PCR tests. Repeat images within 48 hours of the chest. 3. Seizure disorder with exacerbation. Started on Keppra by Neurology. Control his seizure. Continue seizure precaution and antibiotics for now to cover for possible infection. Source pending culture and PCR test for COVID-19. Thank you for the consult. ID will continue to follow. Katherine Fagan M.D. DR: HIWOT JOB#: [id number] CC:
--- NOTE | 2019-12-30 08:44 | Consultation ---
DATE OF CONSULTATION: 12/29/2019 CARDIOLOGY CONSULTATION CONSULTING PHYSICIAN: Peter العلي MD REFERRING PHYSICIAN: Caleb Whitfield MD REASON FOR CONSULTATION: Management of tachycardia. HISTORY OF PRESENT ILLNESS: The patient is a very unfortunate 49-year-old gentleman who is a resident of a nursing facility, who was brought in by the paramedics for seizure activity and fever of one day. The patient has a history of seizure disorder and normally takes Dilantin. Apparently, the patient was found to have a very low phenytoin level on the laboratory findings just about a week earlier. At the time of arrival to this facility, the patient's blood pressure was 112/80 mmHg and heart rate was 140. Laboratory findings in the emergency department showed normal troponin I level. The patient received 1 gram of Keppra and 500 mg of Dilantin in the emergency department and was admitted to telemetry for further evaluation and management. Cardiology consultation was made at the request of Dr. Whitfield for evaluation and management of tachycardia. Of note, 12-lead electrocardiogram in the emergency department had shown sinus tachycardia with rate of [address] and T wave abnormality. PAST MEDICAL HISTORY: Includes seizure disorder, history of Parkinson disease, history of encephalopathy, history of anxiety, and history of hypertension. PAST SURGICAL HISTORY: Right-sided craniotomy. ALLERGIES: No known drug allergies. FAMILY HISTORY: No premature coronary artery disease in first-degree relatives. MEDICATIONS: List of medication includes aspirin 81 mg p.o. daily, Lipitor 10 mg p.o. at bedtime, calcium carbonate and vitamin D3 1 tablet daily, clonazepam 0.5 mg p.o. daily, lactulose 30 mL twice daily, Keppra 500 mg twice daily, Ativan 1 mg q.8 hours as needed anxiety, metoprolol 25 mg q.12 hours, Trileptal 150 mg twice daily, Dilantin 100 mg daily and 200 mg at bedtime, and tamsulosin daily. REVIEW OF SYSTEMS: A 12-system review done, essentially negative except what was mentioned in the history of present illness. SOCIAL HISTORY: Denies any tobacco, alcohol, or illicit drug use. PHYSICAL EXAMINATION: VITAL SIGNS: Blood pressure was 112/80, pulse of 140, respirations of 28, O2 saturation 95% on 4 liters of oxygen via nasal cannula, and temperature of 100.6 degrees Fahrenheit. GENERAL: This is a very unfortunate 49-year-old gentleman, in no apparent respiratory distress, chronically ill, bed-bound. HEENT: Atraumatic and normocephalic. Anicteric. Pupils are equal, round, and reactive to light and accommodation. Extraocular muscles intact. NECK: JVP less than 5 centimeter. No carotid bruit. Carotid upstroke is 2+ bilaterally. CARDIOVASCULAR: Normal S1 and S2. Tachycardic. No murmurs, gallops, or rubs. PMI is at fourth intercostal space in the midclavicular line. LUNGS: Diminished breath sounds in the bases. ABDOMEN: Soft, nontender, and nondistended. No hepatosplenomegaly. Positive bowel sounds. EXTREMITIES: No evidence of edema, clubbing, or cyanosis. LABORATORY FINDINGS: WBC 6.3, hemoglobin 18.0, hematocrit of 51.8, and platelet count is 186. His sodium is 140, potassium is 3.8, chloride 100, bicarbonate 24, BUN 12, creatinine 1.2, glucose is 122, calcium is 9.4, troponin I is 0.0. Chest x-ray, elevation of right hemidiaphragm with adjacent linear opacity to the right lung base which may be related to subsegmental atelectasis or scarring plus cardiomegaly. ASSESSMENT AND PLAN: The patient is a very unfortunate gentleman who is seen in Cardiology consultation. 1. Sinus tachycardia. This is most likely due to underlying sepsis/hypovolemia and/or bilateral pneumonia. The treatment of this problem is eradicating and controlling the underlying etiologies. No AV ewa agent is required at this time. 2. Seizure disorder. I would like to thank Dr. Whitfield for allowing me to participate in the care of this patient. Peter العلي M.D. DR: YAMILET JOB#: [id number] CC:
[2019-12-30] MEDS: Aspirin EC 81mg tab ORAL SCH (09:11)
[2019-12-30] MEDS: Docusate 100mg cap ORAL SCH ×2 (09:11→17:12)
[2019-12-30] MEDS: OXcarbazepine 150mg tab ORAL SCH ×2 (09:11→21:00)
[2019-12-30] MEDS: Calcium Carbonate 500mg w/Vit D 200iu tab ORAL SCH (09:11)
[2019-12-30] MEDS: clonazePAM 0.5mg tab ORAL SCH (09:11)
[2019-12-30] MEDS: Heparin 5000 units/ml inj SUBQ SCH ×2 (09:13→21:00)
[2019-12-30] MEDS: Vancomycin 1.25gm/NS Premix IVPB SCH ×2 (09:19→17:12)
--- NOTE | 2019-12-30 10:33 | Pulmonology Progress Note ---
Assessment/Plan Assessment/Plan IMPRESSION: 1. Seizure disorder. 2. Subtherapeutic Dilantin level. 3. Parkinson's. 4. Previous craniotomy. DISCUSSION: Continue current medications and care. Hold off antibiotics. The patient needs to be reloaded with Dilantin. I note this patient has been started on Azactam, lactulose,Keppra. Seen by neurology Josh Hudson M.D. Subjective Interval Events: None new Constitutional: Reports: no symptoms HEENT: Repors: no symptoms Respiratory: Reports: no symptoms Cardiovascular: Reports: no symptoms Gastrointestinal/Abdominal: Reports: no symptoms Allergies: Coded Allergies: No Known Allergies (Unverified , 05/07/16) Objective Last 24 Hour Vital Signs Date Time Temp Pulse Resp B/P (MAP) Pulse Ox O2 Delivery O2 Flow Rate FiO2 12/30/19 09:00 95 102/73 12/30/19 08:00 2.0 12/30/19 08:00 99.5 95 20 102/73 (83) 97 12/30/19 04:00 94 12/30/19 04:00 2.0 12/30/19 04:00 96.3 102 17 104/73 (83) 97 12/30/19 00:00 2.0 12/30/19 00:00 97.3 103 18 123/63 (83) 94 12/30/19 00:00 88 12/29/19 23:21 Nasal Cannula 2.0 12/29/19 20:00 2.0 12/29/19 20:00 99 12/29/19 20:00 97.9 100 17 121/63 (82) 90 12/29/19 16:14 2.0 12/29/19 15:52 87 12/29/19 12:12 2.0 12/29/19 12:00 98 Intake and Output 12/29/19 12/30/19 19:00 07:00 Intake Total 324 ml 150 ml Output Total 800 ml Balance 324 ml -650 ml Intake Oral 324 ml 150 ml Output Urine Total 800 ml # Voids 2 3 # Bowel Movements 1 1 General Appearance: no acute distress HEENT: normocephalic Respiratory/Chest: chest wall non-tender, lungs clear Cardiovascular: normal rate Abdomen: normal bowel sounds Microbiology Date/Time Source Procedure Growth Status 12/28/19 15:53 Nasal Nares MRSA Culture - Final NO METHICILLIN RESISTANT STAPH AUREUS... Complete 12/28/19 15:53 Rectum - Final NO CARBAPENEM-RESISTANT ENTEROBACTERI... Complete 12/28/19 15:53 Rectum VRE Culture - Final NO VANCOMYCIN RESISTANT ENTEROCOCCUS ... Complete Laboratory Tests 12/29/19 22:30: Troponin I 0.000 12/30/19 08:25: Vancomycin Level Trough 8.1 Current Medications Medications (Trade) Dose Ordered Sig/Pankaj Route PRN Reason Start Time Stop Time Status Last Admin Dose Admin Aspirin (Ecotrin) 81 mg DAILY ORAL 12/29/19 09:00 02/12/20 08:59 12/30/19 09:11 Atorvastatin Calcium (Lipitor) 10 mg BEDTIME ORAL 12/29/19 21:00 03/28/20 20:59 12/29/19 23:09 Aztreonam 2 gm/ Sodium Chloride 110 ml @ 220 mls/hr Q12H IVPB 12/29/19 08:00 01/05/20 07:59 12/30/19 08:15 Calcium/Vitamin D (OsCal D) 1 tab DAILY ORAL 12/29/19 09:00 03/28/20 08:59 12/30/19 09:11 Clonazepam (KlonoPIN) 0.5 mg DAILY ORAL 12/29/19 09:00 01/05/20 08:59 12/30/19 09:11 Docusate Sodium (Colace) 100 mg TWICE A DAY ORAL 12/30/19 09:00 01/29/20 08:59 12/30/19 09:11 Heparin Sodium (Porcine) (Heparin 5000 units/ml) 5,000 units EVERY 12 HOURS SUBQ 12/29/19 21:00 02/12/20 20:59 12/30/19 09:13 Levetiracetam (Keppra) 1,000 mg Q12HR ORAL 12/29/19 21:00 02/12/20 20:59 12/30/19 09:11 Lorazepam (Ativan) 1 mg EVERY 8 HOURS PRN ORAL For Anxiety 12/29/19 02:15 01/05/20 02:14 Metoprolol Tartrate (Lopressor) 50 mg EVERY 12 HOURS ORAL 12/30/19 09:00 03/29/20 08:59 Oxcarbazepine (TrileptaL) 150 mg BID@0900,2100 ORAL 12/29/19 09:00 02/12/20 08:59 12/30/19 09:11 Pantoprazole (Protonix) 40 mg DAILY ORAL 12/30/19 09:00 01/29/20 08:59 12/30/19 09:11 Tamsulosin HCl (Flomax) 0.4 mg BEDTIME ORAL 12/29/19 21:00 01/28/20 20:59 12/29/19 23:09 Vancomycin HCl (Vanco rx to dose) 1 ea DAILY PRN MISC Per rx protocol 12/28/19 17:45 01/27/20 17:44 Vancomycin/Sodium Chloride 275 ml @ 183.333 mls/hr Q8H IVPB 12/30/19 17:00 01/04/20 16:59 Josh Hudson MD Dec 30, 2019 10:33
[2019-12-30 12:00] VITALS: BP 102/78
--- NOTE | 2019-12-30 14:54 | Neurology Progress Note ---
Interim History Interim History Interim History Mr. Hao Bautista is a 49-year-old, right-handed, gentleman, who does have a past history of hypertension, dyslipidemia, psychosis, left-sided weakness, and epilepsy with questionable type of seizures for which she is on Dilantin 300 mg daily. He apparently lives in a mcc and had a breakthrough seizure as a result of which she was brought into the [facility] emergency room on 12/28/2019. On being evaluated in the emergency room he had a temperature elevated to 100.8 F, he was also tachycardic and tachypneic. His Dilantin level was subtherapeutic. A chest x-ray revealed a questionable pneumonic process. He feels well today. He and his nurses deny any further seizures. He continues to be cognitively impoverished. He insists on drinking some coffee. Review of Systems Neuro Review of Systems Benign. Objective Physical Exam Last Vital Signs Date Time Temp Pulse Resp B/P (MAP) Pulse Ox O2 Delivery O2 Flow Rate FiO2 12/30/19 12:00 98.3 103 20 102/78 (86) 99 12/30/19 12:00 2.0 12/30/19 09:00 Nasal Cannula 12/29/19 00:10 97 Laboratory Tests Test 12/29/19 22:30 12/30/19 08:25 Troponin I 0.000 ng/mL (0.000-0.056) Vancomycin Level Trough 8.1 ug/mL (5.0-12.0) Neurologic Exam Objective PHYSICAL EXAMINATION: GENERAL: The patient is a well developed, well nourished, , gentleman, lying in bed, in no acute distress. HEAD: Normocephalic and atraumatic. NECK: No neck rigidity was observed. EENT: Benign. NEUROLOGIC EXAMINATION: MENTAL STATUS EXAMINATION: He was awake and alert. He was oriented to self only. He was able to recall 3/3 words immediately but could not remember any of them in 1 minute and 3 minutes. He was unable to tell me who the present president is. He was unable to cooperate for further mental status testing. SPEECH: He had a moderate dysarthria. LANGUAGE: He had problems with comprehension and expression of language. CRANIAL NERVE EXAMINATION: II: The visual muller were intact to confrontation testing. III, IV, : External ocular movements were full and pupils 3 mm in diameter equal, round, regular and reactive to light. V: The facial sensations were normal, and the temporales, masseters and pterygoids functioned normally. VII: He had a left seventh central facial paresis. VIII: He was able to hear well bilaterally and had no nystagmus. IX: The palate moved symmetrically on phonation. X: There was no hoarseness of voice. XI: The sternocleidomastoids and trapezii functioned normally. XII: The tongue was in the midline without any fasciculations or atrophy. MOTOR SYSTEM: The tone was increased in all 4 extremities with spasticity more marked on the left than on the right. Examination of muscle mass revealed bilateral ankle cord contractures. Examination of power was exceedingly difficult to perform due to varying degrees of cooperation. He however had a definite left greater than right paresis. SENSORY EXAMINATION: He responded appropriately to deep pain but could not cooperate for the sensory modalities. COORDINATION: Could not be tested. REFLEXES: 1+ on the right and 1++ on the left at the biceps, triceps, brachioradialis, and knees. 0 at both ankles. The plantar responses were flexor bilaterally. STANCE & GAIT: Not be tested. Impression/Recommendations Diagnostic Impression 1. Mr. Hao Bautista is a 49-year-old, right-handed, gentleman, who does have a past history of hypertension, dyslipidemia, psychosis, left-sided weakness, and epilepsy with questionable type of seizures for which she is on Dilantin 300 mg daily. 2. He apparently lives in a mcc and had a breakthrough seizure as a result of which she was brought into the [facility] emergency room on 12/28/2019. On being evaluated in the emergency room he had a temperature elevated to 100.8 F, he was also tachycardic and tachypneic. His Dilantin level was subtherapeutic. A chest x-ray revealed a questionable pneumonic process. 3. He feels well today. He and his nurses deny any further seizures. He continues to be cognitively impoverished. He insists on drinking some coffee. 4. On neurological examination, at this time, he has significant problems with orientation, recent and remote memory, and other cognitive function. He also has a significant dysarthria and in addition language problems. He is definitely weaker on the left side compared to the right and his deep tendon reflexes are also brisker on the left side compared to the right. 5. EEG performed on 12/29/2019 revealed a moderate encephalopathy and right frontocentral temporal dysfunction. No interictal discharges were seen. 6. The CT scan of the brain performed on 12/29/2019 revealed a right convexity craniectomy. There was a large area of encephalomalacia involving the right frontal lobe and extending into the basal ganglia. There was a less extensive but still sizable area of encephalomalacia in the left frontal lobe. In addition multiple foci of hyperattenuation were seen in the right anterior frontal cortex, and right parietal cortex. 7. 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 Recommendations 1. Continue present management. 2. Continue to Keppra 1 g every 12 hours. 3. Continue to correct metabolic imbalances and treat questionable infection as deemed necessary. 4. Observe. Mukesh Haas M.D., M.S.P.H. Neurologist & Clinical Neurophysiologist Mukesh Haas MD Dec 30, 2019 14:54
[2019-12-30 16:00] VITALS: BP 121/63
--- NOTE | 2019-12-30 16:30 | Electroencephalogram ---
DATE OF PROCEDURE: 12/29/2019 REQUESTING PHYSICIAN: Caleb Whitfield MD. READING PHYSICIAN: Mukesh Haas MD. PROCEDURE PERFORMED: Electroencephalogram. DATE OF TRACIN12/29/2019 HISTORY: This EEG was performed on a 49-year-old gentleman with a history of multiple medical problems, who was brought into the hospital for seizures. The purpose of this EEG was to better delineate the type of seizure disorder. TECHNICAL NOTE: This EEG was performed on a [employer] with electrodes placed on the scalp according to the International 10-20 system. [id number] and [id number] montages were used. The EEG was technically satisfactory and was performed in the awake and drowsy states. OBSERVATIONS: In the best awake state, the background activity consisted of 8-9 Hz alpha with intermixed theta frequencies. Right frontocentrotemporal polymorphic delta activity was also seen. Drowsiness was characterized by slowing of the background in the 4-5 Hz theta range with an increase in the amount of right frontocentrotemporal polymorphic delta activity. No epileptiform discharges were seen. IMPRESSION: This is an abnormal EEG characterized by: 1. An unusually large amount of intermixed theta activity seen in the reportedly awake state. 2. The presence of right frontocentrotemporal polymorphic delta activity COMMENT: This study is consistent with: 1. An encephalopathy of a mild degree. 2. Right frontocentrotemporal dysfunction of a focal nature. Mukesh Haas M.D., M.S.P.H. Clinical Neurophysiologist DR: Sally JOB#: [id number] MTDD
--- NOTE | 2019-12-30 16:50 | Infectious Diseases Prog Note ---
Assessment/Plan Problems: (1) Suspected COVID-19 virus infection Assessment & Plan: continue enhanced droplets isolation with antibiotics pending PCR result (2) Febrile illness, acute Assessment & Plan: possible viral pneumonia , continue antibiotics with vancomycin and aztreonam for now pending cultures and PCR test , repeat chest x- ray (3) Seizure disorder Assessment & Plan: continue keppra to control his seizure with precaution, continue antibiotics to cover for possible infection pending cultures and COVID 19 PCR test Subjective ROS Limited/Unobtainable: Yes Allergies: Coded Allergies: No Known Allergies (Unverified , 05/07/16) Subjective he was still lethargic laying in bed as dry cough but no phlegm no shortness of breath no fever or chills today no diarrhea Objective Vital Signs Last 24 Hour Vital Signs Date Time Temp Pulse Resp B/P (MAP) Pulse Ox O2 Delivery O2 Flow Rate FiO2 12/30/19 16:00 98.2 102 20 121/63 (82) 99 12/30/19 16:00 2.0 12/30/19 12:00 98.3 103 20 102/78 (86) 99 12/30/19 12:00 2.0 12/30/19 11:45 93 12/30/19 09:00 95 102/73 12/30/19 09:00 Nasal Cannula 2.0 12/30/19 08:00 2.0 12/30/19 08:00 99.5 95 20 102/73 (83) 97 12/30/19 07:45 93 12/30/19 04:00 94 12/30/19 04:00 2.0 12/30/19 04:00 96.3 102 17 104/73 (83) 97 12/30/19 00:00 2.0 12/30/19 00:00 97.3 103 18 123/63 (83) 94 12/30/19 00:00 88 12/29/19 23:21 Nasal Cannula 2.0 12/29/19 20:00 2.0 12/29/19 20:00 99 12/29/19 20:00 97.9 100 17 121/63 (82) 90 Height (Feet): 5 Height (Inches): 10.00 Weight (Pounds): 170 General Appearance: WD/WN, no acute distress HEENT: normocephalic, atraumatic, anicteric, mucous membranes moist, PERRL Respiratory/Chest: chest wall non-tender, no respiratory distress, no accessory muscle use, decreased breath sounds Cardiovascular: normal peripheral pulses, normal rate, regular rhythm, no gallop/murmur, no JVD Abdomen: normal bowel sounds, soft, non tender, no organomegaly, non distended , no mass, no scars Genitourinary: normal external genitalia Extremities: no cyanosis, no clubbing Skin: no rash, no lesions, no ulcers Neurologic/Psychiatric: alert Lymphatic: no neck adenopathy, no groin adenopathy Musculoskeletal: normal muscle bulk, no effusion Microbiology Date/Time Source Procedure Growth Status 12/28/19 13:20 Blood Blood Culture - Preliminary NO GROWTH AFTER 48 HOURS Resulted 12/28/19 13:05 Blood Blood Culture - Preliminary NO GROWTH AFTER 48 HOURS Resulted 12/28/19 15:53 Nasal Nares MRSA Culture - Final NO METHICILLIN RESISTANT STAPH AUREUS... Complete 12/28/19 15:53 Rectum - Final NO CARBAPENEM-RESISTANT ENTEROBACTERI... Complete 12/28/19 15:53 Rectum VRE Culture - Final NO VANCOMYCIN RESISTANT ENTEROCOCCUS ... Complete Laboratory Tests Test 12/29/19 22:30 12/30/19 08:25 Troponin I 0.000 ng/mL (0.000-0.056) Vancomycin Level Trough 8.1 ug/mL (5.0-12.0) Current Medications Medications (Trade) Dose Ordered Sig/Pankaj Route PRN Reason Start Time Stop Time Status Last Admin Dose Admin Aspirin (Ecotrin) 81 mg DAILY ORAL 12/29/19 09:00 02/12/20 08:59 12/30/19 09:11 Atorvastatin Calcium (Lipitor) 10 mg BEDTIME ORAL 12/29/19 21:00 03/28/20 20:59 12/29/19 23:09 Aztreonam 2 gm/ Sodium Chloride 110 ml @ 220 mls/hr Q12H IVPB 12/29/19 08:00 01/05/20 07:59 12/30/19 08:15 Calcium/Vitamin D (OsCal D) 1 tab DAILY ORAL 12/29/19 09:00 03/28/20 08:59 12/30/19 09:11 Clonazepam (KlonoPIN) 0.5 mg DAILY ORAL 12/29/19 09:00 01/05/20 08:59 12/30/19 09:11 Docusate Sodium (Colace) 100 mg TWICE A DAY ORAL 12/30/19 09:00 01/29/20 08:59 12/30/19 09:11 Heparin Sodium (Porcine) (Heparin 5000 units/ml) 5,000 units EVERY 12 HOURS SUBQ 12/29/19 21:00 02/12/20 20:59 12/30/19 09:13 Levetiracetam (Keppra) 1,000 mg Q12HR ORAL 12/29/19 21:00 02/12/20 20:59 12/30/19 09:11 Lorazepam (Ativan) 1 mg EVERY 8 HOURS PRN ORAL For Anxiety 12/29/19 02:15 01/05/20 02:14 Metoprolol Tartrate (Lopressor) 50 mg EVERY 12 HOURS ORAL 12/30/19 21:00 03/29/20 08:59 Oxcarbazepine (TrileptaL) 150 mg BID@0900,2100 ORAL 12/29/19 09:00 02/12/20 08:59 12/30/19 09:11 Pantoprazole (Protonix) 40 mg DAILY ORAL 12/30/19 09:00 01/29/20 08:59 12/30/19 09:11 Tamsulosin HCl (Flomax) 0.4 mg BEDTIME ORAL 12/29/19 21:00 01/28/20 20:59 12/29/19 23:09 Vancomycin HCl (Vanco rx to dose) 1 ea DAILY PRN MISC Per rx protocol 12/28/19 17:45 01/27/20 17:44 Vancomycin/Sodium Chloride 275 ml @ 183.333 mls/hr Q8H IVPB 12/30/19 17:00 01/04/20 16:59 Katherine Fagan M.D. Dec 30, 2019 16:50
[2019-12-30 20:00] VITALS: BP 118/86
[2019-12-30] MEDS: Metoprolol Tartrate 50mg tab ORAL SCH (21:00)
[2019-12-30] MEDS: Tamsulosin 0.4mg cap ORAL SCH (21:00)
--- NOTE | 2019-12-30 21:22 | General Progress Note ---
Assessment/Plan Assessment/Plan: S,O: awake , AOX1, seems comfortable. PHYSICAL EXAMINATION:HEAD AND NECK: Atraumatic and normocephalic. CHEST: Negative for acute pathology. No wheezing. No crackles. HEART: S1 and S2. Regular rate and rhythm. ABDOMEN: Soft. No organomegaly. MUSCULOSKELETAL: Left-sided hemiparesis. NEUROLOGIC: The patient is awake and alert x1. LABORATORY AND DIAGNOSTIC DATA: Labs dated 12/28 reviewed. Meds: reviewed and reconcile. ASSESSMENT: 1. Acute breakthrough seizure secondary to subtherapeutic serum antiepileptic medications and possible new focal lesion/ICH 2. Hypertension. 3. Fever, likely postictal, possibility of COVID-19 infection cannot be excluded. 4. Chronic encephalopathy with decline in cognition. 5. Hyperlipidemia. 6. GI and DVT prophylaxis. PLAN OF CARE: 1. Status post IV antiepileptic administration. 2. We will continue residential medications. 3. Continue with seizure precautions. 4. Infectious Diseases, Pulmonary, and Cardiology have been consulted. Plan: pending cultures I will stop ASA, . I called the [employer] , Aunt ( Charli Curran) on December 29 Notes from Neurology reviwed Subjective Allergies: Coded Allergies: No Known Allergies (Unverified , 05/07/16) Objective Last 24 Hour Vital Signs Date Time Temp Pulse Resp B/P (MAP) Pulse Ox O2 Delivery O2 Flow Rate FiO2 12/30/19 16:06 112 12/30/19 16:00 98.2 102 20 121/63 (82) 99 12/30/19 16:00 2.0 12/30/19 12:00 98.3 103 20 102/78 (86) 99 12/30/19 12:00 2.0 12/30/19 11:45 93 12/30/19 09:00 95 102/73 12/30/19 09:00 Nasal Cannula 2.0 12/30/19 08:00 2.0 12/30/19 08:00 99.5 95 20 102/73 (83) 97 12/30/19 07:45 93 12/30/19 04:00 94 12/30/19 04:00 2.0 12/30/19 04:00 96.3 102 17 104/73 (83) 97 12/30/19 00:00 2.0 12/30/19 00:00 97.3 103 18 123/63 (83) 94 12/30/19 00:00 88 12/29/19 23:21 Nasal Cannula 2.0 Intake and Output 12/29/19 12/30/19 19:00 07:00 Intake Total 324 ml 150 ml Output Total 800 ml Balance 324 ml -650 ml Intake Oral 324 ml 150 ml Output Urine Total 800 ml # Voids 2 3 # Bowel Movements 1 1 Laboratory Tests 12/29/19 22:30: Troponin I 0.000 12/30/19 08:25: Vancomycin Level Trough 8.1 Height (Feet): 5 Height (Inches): 10.00 Weight (Pounds): 170 Caleb Whitfield MD Dec 30, 2019 21:22
--- NOTE | 2019-12-30 23:35 | Cardiology Progress Note ---
Assessment/Plan Assessment/Plan 1. Sinus tachycardia. This is most likely due to underlying sepsis/hypovolemia and/or bilateral pneumonia. The treatment of this problem is eradicating and controlling the underlying etiologies. 2. Seizure disorder. Subjective Subjective Sinus rhythm at rate of 99. Objective Last 24 Hour Vital Signs Date Time Temp Pulse Resp B/P (MAP) Pulse Ox O2 Delivery O2 Flow Rate FiO2 12/30/19 21:00 99 118/86 12/30/19 16:06 112 12/30/19 16:00 98.2 102 20 121/63 (82) 99 12/30/19 16:00 2.0 12/30/19 12:00 98.3 103 20 102/78 (86) 99 12/30/19 12:00 2.0 12/30/19 11:45 93 12/30/19 09:00 95 102/73 12/30/19 09:00 Nasal Cannula 2.0 12/30/19 08:00 2.0 12/30/19 08:00 99.5 95 20 102/73 (83) 97 12/30/19 07:45 93 12/30/19 04:00 94 12/30/19 04:00 2.0 12/30/19 04:00 96.3 102 17 104/73 (83) 97 12/30/19 00:00 2.0 12/30/19 00:00 97.3 103 18 123/63 (83) 94 12/30/19 00:00 88 Intake and Output 12/29/19 12/30/19 19:00 07:00 Intake Total 324 ml 150 ml Output Total 800 ml Balance 324 ml -650 ml Intake Oral 324 ml 150 ml Output Urine Total 800 ml # Voids 2 3 # Bowel Movements 1 1 Laboratory Tests Test 12/30/19 08:25 Vancomycin Level Trough 8.1 ug/mL (5.0-12.0) Microbiology Date/Time Source Procedure Growth Status 12/28/19 13:20 Blood Blood Culture - Preliminary NO GROWTH AFTER 48 HOURS Resulted 12/28/19 13:05 Blood Blood Culture - Preliminary NO GROWTH AFTER 48 HOURS Resulted 12/28/19 15:53 Nasal Nares MRSA Culture - Final NO METHICILLIN RESISTANT STAPH AUREUS... Complete 12/28/19 15:53 Rectum - Final NO CARBAPENEM-RESISTANT ENTEROBACTERI... Complete 12/28/19 15:53 Rectum VRE Culture - Final NO VANCOMYCIN RESISTANT ENTEROCOCCUS ... Complete Objective HEENT: Atraumatic and normocephalic. Anicteric. Pupils are equal, round, and reactive to light and accommodation. Extraocular muscles intact. NECK: JVP less than 5 centimeter. No carotid bruit. Carotid upstroke is 2+ bilaterally. CARDIOVASCULAR: Normal S1 and S2. Tachycardic. No murmurs, gallops, or rubs. PMI is at fourth intercostal space in the midclavicular line. LUNGS: Diminished breath sounds in the bases. ABDOMEN: Soft, nontender, and nondistended. No hepatosplenomegaly. Positive bowel sounds. EXTREMITIES: No evidence of edema, clubbing, or cyanosis. Peter العلي MD Dec 30, 2019 23:35
[2019-12-31] VITALS: BP 108/76
[2019-12-31] MEDS: Vancomycin 1.25gm/NS Premix IVPB SCH (01:00)
[2019-12-31 04:00] VITALS: BP 144/99
[2019-12-31 08:00] VITALS: BP 104/63
[2019-12-31] MEDS: Aztreonam Inj 2 GM in NS 110 ML IVPB SCH (08:21)
[2019-12-31 08:43] LABS: BASOPHILS % (AUTO) 0.8 % (0.0-2.0); EOSINOPHILS % (AUTO) 0.2 % (0.0-3.0); HEMATOCRIT 43.3 % (42.0-52.0); HEMOGLOBIN 15.1 G/DL (14.2-18.0); LYMPHOCYTES % (AUTO) 32.4 % (20.0-45.0); MEAN CORPUSCULAR VOLUME 87 FL (80-99); MONOCYTES % (AUTO) 10.3 % (1.0-10.0); NEUTROPHILS % (AUTO) 56.4 % (45.0-75.0); PLATELET COUNT 139 K/UL (150-450); RED BLOOD COUNT 4.99 M/UL (4.70-6.10); RED CELL DISTRIBUTION WIDTH 11.5 % (11.6-14.8)
[2019-12-31] MEDS: Metoprolol Tartrate 50mg tab ORAL SCH ×2 (09:00→22:20)
[2019-12-31 09:06] LABS: ALANINE AMINOTRANSFERASE 28 U/L (12-78); ALBUMIN 2.9 G/DL (3.4-5.0); ALBUMIN/GLOBULIN RATIO 0.7 (1.0-2.7); ALKALINE PHOSPHATASE 75 U/L (46-116); ANION GAP 10 mmol/L (5-15); ASPARTATE AMINO TRANSFERASE 44 U/L (15-37); BILIRUBIN,TOTAL 0.4 MG/DL (0.2-1.0); BLOOD UREA NITROGEN 6 mg/dL (7-18); CALCIUM 8.6 MG/DL (8.5-10.1); CARBON DIOXIDE 23 MMOL/L (21-32); CHLORIDE 101 MMOL/L (98-107); CREATININE 0.7 MG/DL (0.55-1.30); POTASSIUM 3.7 MMOL/L (3.5-5.1); SODIUM 134 MMOL/L (136-145)
[2019-12-31] MEDS: OXcarbazepine 150mg tab ORAL SCH ×2 (09:19→22:20)
[2019-12-31] MEDS: clonazePAM 0.5mg tab ORAL SCH (09:19)
[2019-12-31] MEDS: Calcium Carbonate 500mg w/Vit D 200iu tab ORAL SCH (09:19)
[2019-12-31] MEDS: Aspirin EC 81mg tab ORAL SCH (09:19)
[2019-12-31] MEDS: Docusate 100mg cap ORAL SCH ×2 (09:19→17:12)
[2019-12-31] MEDS: Heparin 5000 units/ml inj SUBQ SCH ×2 (09:20→21:00)
[2019-12-31 12:00] VITALS: BP 113/79
--- NOTE | 2019-12-31 12:31 | Pulmonology Progress Note ---
Assessment/Plan Assessment/Plan IMPRESSION: 1. Seizure disorder. 2. Subtherapeutic Dilantin level. 3. Parkinson's. 4. Previous craniotomy. 5. Atelectasis DISCUSSION: Continue current medications and care. Hold off antibiotics. Seen by neurology Respiratory status is stable On 2L/min O2 COVID 19 negative CXR shows atelectasis Josh Hudson M.D. Subjective Interval Events: None new Constitutional: Reports: no symptoms HEENT: Repors: no symptoms Respiratory: Reports: no symptoms Cardiovascular: Reports: no symptoms Gastrointestinal/Abdominal: Reports: no symptoms Allergies: Coded Allergies: No Known Allergies (Unverified , 05/07/16) Objective Last 24 Hour Vital Signs Date Time Temp Pulse Resp B/P (MAP) Pulse Ox O2 Delivery O2 Flow Rate FiO2 12/31/19 12:00 2.0 12/31/19 12:00 98.0 94 20 113/79 (90) 96 12/31/19 09:00 102 104/63 12/31/19 09:00 Nasal Cannula 2.0 12/31/19 08:00 2.0 12/31/19 08:00 98.1 102 20 104/63 (77) 96 12/31/19 07:27 84 12/31/19 04:00 105 12/31/19 04:00 97.2 61 24 144/99 (114) 97 12/31/19 04:00 2.0 12/31/19 00:00 87 12/31/19 00:00 98.7 90 20 108/76 (87) 97 12/31/19 00:00 2.0 12/30/19 21:00 99 118/86 12/30/19 21:00 Nasal Cannula 2.0 12/30/19 20:00 2.0 12/30/19 20:00 99.3 99 22 118/86 (97) 99 12/30/19 16:06 112 12/30/19 16:00 98.2 102 20 121/63 (82) 99 12/30/19 16:00 2.0 Intake and Output 12/30/19 12/31/19 19:00 07:00 Intake Total 240 ml Balance 240 ml Intake Oral 240 ml # Voids 2 General Appearance: no acute distress HEENT: normocephalic Respiratory/Chest: chest wall non-tender, lungs clear Cardiovascular: normal peripheral pulses Abdomen: normal bowel sounds Microbiology Date/Time Source Procedure Growth Status 12/28/19 13:20 Blood Blood Culture - Preliminary NO GROWTH AFTER 48 HOURS Resulted 12/28/19 13:05 Blood Blood Culture - Preliminary NO GROWTH AFTER 48 HOURS Resulted 12/28/19 15:53 Nasal Nares MRSA Culture - Final NO METHICILLIN RESISTANT STAPH AUREUS... Complete 12/28/19 13:20 Nasopharynx Coronavirus COVID-19 PCR (JASIEL) - Final Complete 12/28/19 15:53 Rectum - Final NO CARBAPENEM-RESISTANT ENTEROBACTERI... Complete 12/28/19 15:53 Rectum VRE Culture - Final NO VANCOMYCIN RESISTANT ENTEROCOCCUS ... Complete Laboratory Tests 12/31/19 08:05: White Blood Count 5.0, Red Blood Count 4.99, Hemoglobin 15.1, Hematocrit 43.3, Mean Corpuscular Volume 87, Mean Corpuscular Hemoglobin 30.2, Mean Corpuscular Hemoglobin Concent 34.8, Red Cell Distribution Width 11.5L, Platelet Count 139L , Mean Platelet Volume 7.1, Neutrophils (%) (Auto) 56.4, Lymphocytes (%) (Auto) 32.4, Monocytes (%) (Auto) 10.3H, Eosinophils (%) (Auto) 0.2, Basophils (%) ( Auto) 0.8, Sodium Level 134L, Potassium Level 3.7, Chloride Level 101, Carbon Dioxide Level 23, Anion Gap 10, Blood Urea Nitrogen 6L, Creatinine 0.7, Estimat Glomerular Filtration Rate > 60, Glucose Level 88, Calcium Level 8.6, Total Bilirubin 0.4, Aspartate Amino Transf (AST/SGOT) 44H, Alanine Aminotransferase ( ALT/SGPT) 28, Alkaline Phosphatase 75, Total Protein 7.3, Albumin 2.9L, Globulin 4.4, Albumin/Globulin Ratio 0.7L, Vancomycin Level Trough 24.6H Current Medications Medications (Trade) Dose Ordered Sig/Pankaj Route PRN Reason Start Time Stop Time Status Last Admin Dose Admin Aspirin (Ecotrin) 81 mg DAILY ORAL 12/29/19 09:00 02/12/20 08:59 12/31/19 09:19 Atorvastatin Calcium (Lipitor) 10 mg BEDTIME ORAL 12/29/19 21:00 03/28/20 20:59 12/30/19 21:00 Calcium/Vitamin D (OsCal D) 1 tab DAILY ORAL 12/29/19 09:00 03/28/20 08:59 12/31/19 09:19 Clonazepam (KlonoPIN) 0.5 mg DAILY ORAL 12/29/19 09:00 01/05/20 08:59 12/31/19 09:19 Docusate Sodium (Colace) 100 mg TWICE A DAY ORAL 12/30/19 09:00 01/29/20 08:59 12/31/19 09:19 Heparin Sodium (Porcine) (Heparin 5000 units/ml) 5,000 units EVERY 12 HOURS SUBQ 12/29/19 21:00 02/12/20 20:59 12/31/19 09:20 Levetiracetam (Keppra) 1,000 mg Q12HR ORAL 12/29/19 21:00 02/12/20 20:59 12/31/19 09:19 Lorazepam (Ativan) 1 mg EVERY 8 HOURS PRN ORAL For Anxiety 12/29/19 02:15 01/05/20 02:14 Metoprolol Tartrate (Lopressor) 50 mg EVERY 12 HOURS ORAL 12/30/19 21:00 03/29/20 08:59 12/30/19 21:00 Oxcarbazepine (TrileptaL) 150 mg BID@0900,2100 ORAL 12/29/19 09:00 02/12/20 08:59 12/31/19 09:19 Pantoprazole (Protonix) 40 mg DAILY ORAL 12/30/19 09:00 01/29/20 08:59 12/31/19 09:19 Tamsulosin HCl (Flomax) 0.4 mg BEDTIME ORAL 12/29/19 21:00 01/28/20 20:59 12/30/19 21:00 Josh Hudson MD Dec 31, 2019 12:31
--- NOTE | 2019-12-31 14:19 | Neurology Progress Note ---
Interim History Interim History Interim History Mr. Hao Bautista is a 49-year-old, right-handed, gentleman, who does have a past history of hypertension, dyslipidemia, psychosis, left-sided weakness, and epilepsy with questionable type of seizures for which she is on Dilantin 300 mg daily. He apparently lives in a senior living and had a breakthrough seizure as a result of which she was brought into the [facility] emergency room on 12/28/2019. On being evaluated in the emergency room he had a temperature elevated to 100.8 F, he was also tachycardic and tachypneic. His Dilantin level was subtherapeutic. A chest x-ray revealed a questionable pneumonic process. He feels well. He and his nurses deny any further seizures. He continues to be cognitively impoverished. He has discarded everything on his lunch tray. He wants to drink coffee and tells me that no one is getting it for him. Review of Systems Neuro Review of Systems Benign. Objective Physical Exam Last Vital Signs Date Time Temp Pulse Resp B/P (MAP) Pulse Ox O2 Delivery O2 Flow Rate FiO2 12/31/19 12:00 2.0 12/31/19 12:00 98.0 94 20 113/79 (90) 96 12/31/19 09:00 Nasal Cannula 12/29/19 00:10 97 Laboratory Tests Test 12/31/19 08:05 White Blood Count 5.0 K/UL (4.8-10.8) Red Blood Count 4.99 M/UL (4.70-6.10) Hemoglobin 15.1 G/DL (14.2-18.0) Hematocrit 43.3 % (42.0-52.0) Mean Corpuscular Volume 87 FL (80-99) Mean Corpuscular Hemoglobin 30.2 PG (27.0-31.0) Mean Corpuscular Hemoglobin Concent 34.8 G/DL (32.0-36.0) Red Cell Distribution Width 11.5 % (11.6-14.8) L Platelet Count 139 K/UL (150-450) L Mean Platelet Volume 7.1 FL (6.5-10.1) Neutrophils (%) (Auto) 56.4 % (45.0-75.0) Lymphocytes (%) (Auto) 32.4 % (20.0-45.0) Monocytes (%) (Auto) 10.3 % (1.0-10.0) H Eosinophils (%) (Auto) 0.2 % (0.0-3.0) Basophils (%) (Auto) 0.8 % (0.0-2.0) Sodium Level 134 MMOL/L (136-145) L Potassium Level 3.7 MMOL/L (3.5-5.1) Chloride Level 101 MMOL/L (98-107) Carbon Dioxide Level 23 MMOL/L (21-32) Anion Gap 10 mmol/L (5-15) Blood Urea Nitrogen 6 mg/dL (7-18) L Creatinine 0.7 MG/DL (0.55-1.30) Estimat Glomerular Filtration Rate > 60 mL/min (>60) Glucose Level 88 MG/DL (74-106) Calcium Level 8.6 MG/DL (8.5-10.1) Total Bilirubin 0.4 MG/DL (0.2-1.0) Aspartate Amino Transf (AST/SGOT) 44 U/L (15-37) H Alanine Aminotransferase (ALT/SGPT) 28 U/L (12-78) Alkaline Phosphatase 75 U/L (46-116) Total Protein 7.3 G/DL (6.4-8.2) Albumin 2.9 G/DL (3.4-5.0) L Globulin 4.4 g/dL Albumin/Globulin Ratio 0.7 (1.0-2.7) L Vancomycin Level Trough 24.6 ug/mL (5.0-12.0) H Neurologic Exam Objective PHYSICAL EXAMINATION: GENERAL: The patient is a well developed, well nourished, , gentleman, lying in bed, in no acute distress. HEAD: Normocephalic and atraumatic. NECK: No neck rigidity was observed. EENT: Benign. NEUROLOGIC EXAMINATION: MENTAL STATUS EXAMINATION: He was awake and alert. He was oriented to self only. He was able to recall 3/3 words immediately but could not remember any of them in 1 minute and 3 minutes. He was unable to tell me who the present president is. He was unable to cooperate for further mental status testing. SPEECH: He had a moderate dysarthria. LANGUAGE: He had problems with comprehension and expression of language. CRANIAL NERVE EXAMINATION: II: The visual muller were intact to confrontation testing. III, IV, : External ocular movements were full and pupils 3 mm in diameter equal, round, regular and reactive to light. V: The facial sensations were normal, and the temporales, masseters and pterygoids functioned normally. VII: He had a left seventh central facial paresis. VIII: He was able to hear well bilaterally and had no nystagmus. IX: The palate moved symmetrically on phonation. X: There was no hoarseness of voice. XI: The sternocleidomastoids and trapezii functioned normally. XII: The tongue was in the midline without any fasciculations or atrophy. MOTOR SYSTEM: The tone was increased in all 4 extremities with spasticity more marked on the left than on the right. Examination of muscle mass revealed bilateral ankle cord contractures. Examination of power was exceedingly difficult to perform due to varying degrees of cooperation. He however had a definite left greater than right paresis. SENSORY EXAMINATION: He responded appropriately to deep pain but could not cooperate for the sensory modalities. COORDINATION: Could not be tested. REFLEXES: 1+ on the right and 1++ on the left at the biceps, triceps, brachioradialis, and knees. 0 at both ankles. The plantar responses were flexor bilaterally. STANCE & GAIT: Not be tested. Impression/Recommendations Diagnostic Impression 1. Mr. Hao Bautista is a 49-year-old, right-handed, gentleman, who does have a past history of hypertension, dyslipidemia, psychosis, left-sided weakness, and epilepsy with questionable type of seizures for which she is on Dilantin 300 mg daily. 2. He apparently lives in a senior living and had a breakthrough seizure as a result of which she was brought into the [facility] emergency room on 12/28/2019. On being evaluated in the emergency room he had a temperature elevated to 100.8 F, he was also tachycardic and tachypneic. His Dilantin level was subtherapeutic. A chest x-ray revealed a questionable pneumonic process. 3. He feels well. He and his nurses deny any further seizures. He continues to be cognitively impoverished. He has discarded everything on his lunch tray. He wants to drink coffee and tells me that no one is getting it for him. 4. On neurological examination, at this time, he has significant problems with orientation, recent and remote memory, and other cognitive function. He also has a significant dysarthria and in addition language problems. He is definitely weaker on the left side compared to the right and his deep tendon reflexes are also brisker on the left side compared to the right. 5. EEG performed on 12/29/2019 revealed a moderate encephalopathy and right frontocentral temporal dysfunction. No interictal discharges were seen. 6. The CT scan of the brain performed on 12/29/2019 revealed a right convexity craniectomy. There was a large area of encephalomalacia involving the right frontal lobe and extending into the basal ganglia. There was a less extensive but still sizable area of encephalomalacia in the left frontal lobe. In addition multiple foci of hyperattenuation were seen in the right anterior frontal cortex, and right parietal cortex. 7. 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 8. He has been seizure-free since he has been in the hospital. Recommendations 1. Continue present management. 2. Continue to Keppra 1 g every 12 hours. 3. Continue to correct metabolic imbalances and treat questionable infection as deemed necessary. 4. Observe. Mukesh Haas M.D., M.S.P.H. Neurologist & Clinical Neurophysiologist Mukesh Haas MD Dec 31, 2019 14:19
[2019-12-31 16:00] VITALS: BP 121/63
[2019-12-31 20:00] VITALS: BP 121/85
--- NOTE | 2019-12-31 20:23 | Infectious Diseases Prog Note ---
Assessment/Plan Problems: (1) Suspected COVID-19 virus infection Assessment & Plan: was ruled out with negative PCR , may remove from enhanced droplets isolation . will stop antibiotics (2) Febrile illness, acute Assessment & Plan: unclear source with negative PCR for COVID 19 , less likely viral pneumonia , roland stop antibiotics for now since blood cultures and PCR test are negative (3) Seizure disorder Assessment & Plan: continue keppra to control his seizure with precaution, stop antibiotics , follow up with neurology Subjective ROS Limited/Unobtainable: Yes Allergies: Coded Allergies: No Known Allergies (Unverified , 05/07/16) Subjective he was more awake and coherent , has dry cough but no phlegm, no shortness of breath no fever or chills today no diarrhea Objective Vital Signs Last 24 Hour Vital Signs Date Time Temp Pulse Resp B/P (MAP) Pulse Ox O2 Delivery O2 Flow Rate FiO2 12/31/19 16:00 2.0 12/31/19 16:00 98.1 102 20 121/63 (82) 96 12/31/19 15:28 95 12/31/19 12:00 2.0 12/31/19 12:00 98.0 94 20 113/79 (90) 96 12/31/19 11:27 96 12/31/19 09:00 102 104/63 12/31/19 09:00 Nasal Cannula 2.0 12/31/19 08:00 2.0 12/31/19 08:00 98.1 102 20 104/63 (77) 96 12/31/19 07:27 84 12/31/19 04:00 105 12/31/19 04:00 97.2 61 24 144/99 (114) 97 12/31/19 04:00 2.0 12/31/19 00:00 87 12/31/19 00:00 98.7 90 20 108/76 (87) 97 12/31/19 00:00 2.0 12/30/19 21:00 99 118/86 12/30/19 21:00 Nasal Cannula 2.0 Height (Feet): 5 Height (Inches): 10.00 Weight (Pounds): 170 General Appearance: WD/WN, no acute distress HEENT: normocephalic, atraumatic, anicteric, mucous membranes moist, PERRL Respiratory/Chest: chest wall non-tender, lungs clear, normal breath sounds, no respiratory distress, no accessory muscle use Cardiovascular: normal peripheral pulses, normal rate, regular rhythm, no gallop/murmur, no JVD Abdomen: normal bowel sounds, soft, non tender, no organomegaly, non distended , no mass, no scars Extremities: no cyanosis, no clubbing Skin: no rash, no lesions, no ulcers Neurologic/Psychiatric: alert, responsive Lymphatic: no neck adenopathy, no groin adenopathy Musculoskeletal: normal muscle bulk, no effusion Laboratory Tests Test 12/31/19 08:05 White Blood Count 5.0 K/UL (4.8-10.8) Red Blood Count 4.99 M/UL (4.70-6.10) Hemoglobin 15.1 G/DL (14.2-18.0) Hematocrit 43.3 % (42.0-52.0) Mean Corpuscular Volume 87 FL (80-99) Mean Corpuscular Hemoglobin 30.2 PG (27.0-31.0) Mean Corpuscular Hemoglobin Concent 34.8 G/DL (32.0-36.0) Red Cell Distribution Width 11.5 % (11.6-14.8) L Platelet Count 139 K/UL (150-450) L Mean Platelet Volume 7.1 FL (6.5-10.1) Neutrophils (%) (Auto) 56.4 % (45.0-75.0) Lymphocytes (%) (Auto) 32.4 % (20.0-45.0) Monocytes (%) (Auto) 10.3 % (1.0-10.0) H Eosinophils (%) (Auto) 0.2 % (0.0-3.0) Basophils (%) (Auto) 0.8 % (0.0-2.0) Sodium Level 134 MMOL/L (136-145) L Potassium Level 3.7 MMOL/L (3.5-5.1) Chloride Level 101 MMOL/L (98-107) Carbon Dioxide Level 23 MMOL/L (21-32) Anion Gap 10 mmol/L (5-15) Blood Urea Nitrogen 6 mg/dL (7-18) L Creatinine 0.7 MG/DL (0.55-1.30) Estimat Glomerular Filtration Rate > 60 mL/min (>60) Glucose Level 88 MG/DL (74-106) Calcium Level 8.6 MG/DL (8.5-10.1) Total Bilirubin 0.4 MG/DL (0.2-1.0) Aspartate Amino Transf (AST/SGOT) 44 U/L (15-37) H Alanine Aminotransferase (ALT/SGPT) 28 U/L (12-78) Alkaline Phosphatase 75 U/L (46-116) Total Protein 7.3 G/DL (6.4-8.2) Albumin 2.9 G/DL (3.4-5.0) L Globulin 4.4 g/dL Albumin/Globulin Ratio 0.7 (1.0-2.7) L Vancomycin Level Trough 24.6 ug/mL (5.0-12.0) H Current Medications Medications (Trade) Dose Ordered Sig/Pankaj Route PRN Reason Start Time Stop Time Status Last Admin Dose Admin Aspirin (Ecotrin) 81 mg DAILY ORAL 12/29/19 09:00 02/12/20 08:59 12/31/19 09:19 Atorvastatin Calcium (Lipitor) 10 mg BEDTIME ORAL 12/29/19 21:00 03/28/20 20:59 12/30/19 21:00 Calcium/Vitamin D (OsCal D) 1 tab DAILY ORAL 12/29/19 09:00 03/28/20 08:59 12/31/19 09:19 Clonazepam (KlonoPIN) 0.5 mg DAILY ORAL 12/29/19 09:00 01/05/20 08:59 12/31/19 09:19 Docusate Sodium (Colace) 100 mg TWICE A DAY ORAL 12/30/19 09:00 01/29/20 08:59 12/31/19 17:12 Heparin Sodium (Porcine) (Heparin 5000 units/ml) 5,000 units EVERY 12 HOURS SUBQ 12/29/19 21:00 02/12/20 20:59 12/31/19 09:20 Levetiracetam (Keppra) 1,000 mg Q12HR ORAL 12/29/19 21:00 02/12/20 20:59 12/31/19 09:19 Lorazepam (Ativan) 1 mg EVERY 8 HOURS PRN ORAL For Anxiety 12/29/19 02:15 01/05/20 02:14 Metoprolol Tartrate (Lopressor) 50 mg EVERY 12 HOURS ORAL 12/30/19 21:00 03/29/20 08:59 12/30/19 21:00 Oxcarbazepine (TrileptaL) 150 mg BID@0900,2100 ORAL 12/29/19 09:00 02/12/20 08:59 12/31/19 09:19 Pantoprazole (Protonix) 40 mg DAILY ORAL 12/30/19 09:00 01/29/20 08:59 12/31/19 09:19 Tamsulosin HCl (Flomax) 0.4 mg BEDTIME ORAL 12/29/19 21:00 01/28/20 20:59 12/30/19 21:00 Katherine Fagan M.D. Dec 31, 2019 20:23
--- NOTE | 2019-12-31 20:37 | Cardiology Progress Note ---
Assessment/Plan Assessment/Plan 1. Sinus tachycardia. This is most likely due to underlying sepsis/hypovolemia and/or bilateral pneumonia. The treatment of this problem is eradicating and controlling the underlying etiologies. 2. Seizure disorder. Subjective Subjective Sinus tachycardia at rate of 102. Objective Last 24 Hour Vital Signs Date Time Temp Pulse Resp B/P (MAP) Pulse Ox O2 Delivery O2 Flow Rate FiO2 12/31/19 16:00 2.0 12/31/19 16:00 98.1 102 20 121/63 (82) 96 12/31/19 15:28 95 12/31/19 12:00 2.0 12/31/19 12:00 98.0 94 20 113/79 (90) 96 12/31/19 11:27 96 12/31/19 09:00 102 104/63 12/31/19 09:00 Nasal Cannula 2.0 12/31/19 08:00 2.0 12/31/19 08:00 98.1 102 20 104/63 (77) 96 12/31/19 07:27 84 12/31/19 04:00 105 12/31/19 04:00 97.2 61 24 144/99 (114) 97 12/31/19 04:00 2.0 12/31/19 00:00 87 12/31/19 00:00 98.7 90 20 108/76 (87) 97 12/31/19 00:00 2.0 12/30/19 21:00 99 118/86 12/30/19 21:00 Nasal Cannula 2.0 Intake and Output 12/30/19 12/31/19 19:00 07:00 Intake Total 240 ml Balance 240 ml Intake Oral 240 ml # Voids 2 Laboratory Tests Test 12/31/19 08:05 White Blood Count 5.0 K/UL (4.8-10.8) Red Blood Count 4.99 M/UL (4.70-6.10) Hemoglobin 15.1 G/DL (14.2-18.0) Hematocrit 43.3 % (42.0-52.0) Mean Corpuscular Volume 87 FL (80-99) Mean Corpuscular Hemoglobin 30.2 PG (27.0-31.0) Mean Corpuscular Hemoglobin Concent 34.8 G/DL (32.0-36.0) Red Cell Distribution Width 11.5 % (11.6-14.8) L Platelet Count 139 K/UL (150-450) L Mean Platelet Volume 7.1 FL (6.5-10.1) Neutrophils (%) (Auto) 56.4 % (45.0-75.0) Lymphocytes (%) (Auto) 32.4 % (20.0-45.0) Monocytes (%) (Auto) 10.3 % (1.0-10.0) H Eosinophils (%) (Auto) 0.2 % (0.0-3.0) Basophils (%) (Auto) 0.8 % (0.0-2.0) Sodium Level 134 MMOL/L (136-145) L Potassium Level 3.7 MMOL/L (3.5-5.1) Chloride Level 101 MMOL/L (98-107) Carbon Dioxide Level 23 MMOL/L (21-32) Anion Gap 10 mmol/L (5-15) Blood Urea Nitrogen 6 mg/dL (7-18) L Creatinine 0.7 MG/DL (0.55-1.30) Estimat Glomerular Filtration Rate > 60 mL/min (>60) Glucose Level 88 MG/DL (74-106) Calcium Level 8.6 MG/DL (8.5-10.1) Total Bilirubin 0.4 MG/DL (0.2-1.0) Aspartate Amino Transf (AST/SGOT) 44 U/L (15-37) H Alanine Aminotransferase (ALT/SGPT) 28 U/L (12-78) Alkaline Phosphatase 75 U/L (46-116) Total Protein 7.3 G/DL (6.4-8.2) Albumin 2.9 G/DL (3.4-5.0) L Globulin 4.4 g/dL Albumin/Globulin Ratio 0.7 (1.0-2.7) L Vancomycin Level Trough 24.6 ug/mL (5.0-12.0) H Objective HEENT: Atraumatic and normocephalic. Anicteric. Pupils are equal, round, and reactive to light and accommodation. Extraocular muscles intact. NECK: JVP less than 5 centimeter. No carotid bruit. Carotid upstroke is 2+ bilaterally. CARDIOVASCULAR: Normal S1 and S2. Tachycardic. No murmurs, gallops, or rubs. PMI is at fourth intercostal space in the midclavicular line. LUNGS: Diminished breath sounds in the bases. ABDOMEN: Soft, nontender, and nondistended. No hepatosplenomegaly. Positive bowel sounds. EXTREMITIES: No evidence of edema, clubbing, or cyanosis. Peter العلي MD Dec 31, 2019 20:37
[2019-12-31] MEDS ORDERED: Vancomycin 1.25gm/NS Premix IVPB SCH (21:00)
[2019-12-31] MEDS: Tamsulosin 0.4mg cap ORAL SCH (22:20)
[2020-01-01] VITALS: BP 136/75
[2020-01-01 04:00] VITALS: BP 129/86
--- NOTE | 2020-01-01 07:17 | General Progress Note ---
Assessment/Plan Assessment/Plan: S,O: awake , AOX1, seems comfortable. PHYSICAL EXAMINATION:HEAD AND NECK: Atraumatic and normocephalic. CHEST: Negative for acute pathology. No wheezing. No crackles. HEART: S1 and S2. Regular rate and rhythm. ABDOMEN: Soft. No organomegaly. MUSCULOSKELETAL: Left-sided hemiparesis. NEUROLOGIC: The patient is awake and alert x1. LABORATORY AND DIAGNOSTIC DATA: Labs dated 12/30 reviewed. Meds: reviewed and reconcile. ASSESSMENT: 1. Acute breakthrough seizure secondary to subtherapeutic serum antiepileptic medications and possible new focal lesion/ICH 2. Hypertension. 3. Fever, likely postictal, possibility of COVID-19 infection cannot be excluded. 4. Chronic encephalopathy with decline in cognition. 5. Hyperlipidemia. 6. GI and DVT prophylaxis. PLAN OF CARE: 1. Status post IV antiepileptic administration. 2. We will continue usp medications. 3. Continue with seizure precautions. 4. Infectious Diseases, Pulmonary, and Cardiology have been consulted. Plan: Sz free I will stop ASA, . I called the [employer] , Aunt ( Charli Curran) on December 29 Notes from Neurology reviewed Off isolation on empiric abx comment: time of this dictation does not reflect the actual time of the encounter Subjective Allergies: Coded Allergies: No Known Allergies (Unverified , 05/07/16) Objective Last 24 Hour Vital Signs Date Time Temp Pulse Resp B/P (MAP) Pulse Ox O2 Delivery O2 Flow Rate FiO2 01/01/20 04:00 98.1 94 18 129/86 (100) 96 01/01/20 00:00 97.4 91 20 136/75 (95) 96 12/31/19 22:20 98 127/85 12/31/19 21:00 Nasal Cannula 2.0 12/31/19 20:00 97.3 98 17 121/85 (97) 98 12/31/19 16:00 2.0 12/31/19 16:00 98.1 102 20 121/63 (82) 96 12/31/19 15:28 95 12/31/19 12:00 2.0 12/31/19 12:00 98.0 94 20 113/79 (90) 96 12/31/19 11:27 96 12/31/19 09:00 102 104/63 4/18/20 09:00 Nasal Cannula 2.0 12/31/19 08:00 2.0 12/31/19 08:00 98.1 102 20 104/63 (77) 96 12/31/19 07:27 84 Intake and Output 12/31/19 01/01/20 19:00 07:00 Intake Total 600 ml Balance 600 ml Intake Oral 600 ml # Voids 4 Laboratory Tests 12/31/19 08:05: White Blood Count 5.0, Red Blood Count 4.99, Hemoglobin 15.1, Hematocrit 43.3, Mean Corpuscular Volume 87, Mean Corpuscular Hemoglobin 30.2, Mean Corpuscular Hemoglobin Concent 34.8, Red Cell Distribution Width 11.5L, Platelet Count 139L , Mean Platelet Volume 7.1, Neutrophils (%) (Auto) 56.4, Lymphocytes (%) (Auto) 32.4, Monocytes (%) (Auto) 10.3H, Eosinophils (%) (Auto) 0.2, Basophils (%) ( Auto) 0.8, Sodium Level 134L, Potassium Level 3.7, Chloride Level 101, Carbon Dioxide Level 23, Anion Gap 10, Blood Urea Nitrogen 6L, Creatinine 0.7, Estimat Glomerular Filtration Rate > 60, Glucose Level 88, Calcium Level 8.6, Total Bilirubin 0.4, Aspartate Amino Transf (AST/SGOT) 44H, Alanine Aminotransferase ( ALT/SGPT) 28, Alkaline Phosphatase 75, Total Protein 7.3, Albumin 2.9L, Globulin 4.4, Albumin/Globulin Ratio 0.7L, Vancomycin Level Trough 24.6H Height (Feet): 5 Height (Inches): 10.00 Weight (Pounds): 170 Caleb Whitfield MD Jan 01, 2020 07:17
[2020-01-01 08:00] VITALS: BP 104/70
[2020-01-01] MEDS: OXcarbazepine 150mg tab ORAL SCH ×2 (08:44→20:29)
[2020-01-01] MEDS: Calcium Carbonate 500mg w/Vit D 200iu tab ORAL SCH (08:44)
[2020-01-01] MEDS: Docusate 100mg cap ORAL SCH ×2 (08:45→17:34)
[2020-01-01] MEDS: clonazePAM 0.5mg tab ORAL SCH (08:45)
[2020-01-01] MEDS: Heparin 5000 units/ml inj SUBQ SCH ×2 (08:46→20:30)
[2020-01-01] MEDS: Metoprolol Tartrate 50mg tab ORAL SCH ×2 (08:47→20:29)
--- NOTE | 2020-01-01 09:25 | Diagnostic Imaging Report ---
EXAM: XR Chest, 1 View CLINICAL HISTORY: COUGH TECHNIQUE: Frontal view of the chest. COMPARISON: Chest x-ray dated 12/28/19 FINDINGS: Lungs: Low lung volumes, likely related to shallow inspiration. Increased interstitial markings throughout the lungs. Pleural space: Unremarkable. The costophrenic angles are sharp. No visible pneumothorax. Heart: Cardiac silhouette is borderline enlarged. Mediastinum: Unremarkable. Bones/joints: Unremarkable. Tubes, lines and devices: Telemetry leads overlie the thorax. IMPRESSION: 1. Low lung volumes, likely related to shallow inspiration. 2. Increased interstitial markings throughout the lungs. This is likely related to bronchovascular crowding from the low lung volumes, although cannot exclude underlying interstitial edema or pneumonitis. 3. Cardiac silhouette is borderline enlarged.
--- NOTE | 2020-01-01 10:17 | Pulmonology Progress Note ---
Assessment/Plan Assessment/Plan IMPRESSION: 1. Seizure disorder. 2. Subtherapeutic Dilantin level. 3. Parkinson's. 4. Previous craniotomy. 5. Atelectasis DISCUSSION: Continue current medications and care. Hold off antibiotics. Seen by neurology Respiratory status is stable On 2L/min O2 COVID 19 negative CXR shows atelectasis Josh Hudson M.D. Subjective Interval Events: None new Constitutional: Reports: no symptoms HEENT: Repors: no symptoms Respiratory: Reports: no symptoms Cardiovascular: Reports: no symptoms Gastrointestinal/Abdominal: Reports: no symptoms Allergies: Coded Allergies: No Known Allergies (Unverified , 05/07/16) Objective Last 24 Hour Vital Signs Date Time Temp Pulse Resp B/P (MAP) Pulse Ox O2 Delivery O2 Flow Rate FiO2 01/01/20 08:47 103 104/70 01/01/20 08:00 97.9 103 18 104/70 (81) 95 01/01/20 08:00 2.0 01/01/20 04:00 2.0 01/01/20 04:00 98.1 94 18 129/86 (100) 96 01/01/20 04:00 96 01/01/20 00:00 96 01/01/20 00:00 2.0 01/01/20 00:00 97.4 91 20 136/75 (95) 96 12/31/19 22:20 98 127/85 12/31/19 21:00 Nasal Cannula 2.0 12/31/19 20:00 97.3 98 17 121/85 (97) 98 12/31/19 16:00 2.0 12/31/19 16:00 98.1 102 20 121/63 (82) 96 12/31/19 15:28 95 12/31/19 12:00 2.0 12/31/19 12:00 98.0 94 20 113/79 (90) 96 12/31/19 11:27 96 Intake and Output 12/31/19 01/01/20 19:00 07:00 Intake Total 600 ml 450 ml Balance 600 ml 450 ml Intake Oral 600 ml 450 ml # Voids 4 3 General Appearance: no acute distress HEENT: normocephalic Respiratory/Chest: chest wall non-tender Cardiovascular: normal peripheral pulses Abdomen: normal bowel sounds Current Medications Medications (Trade) Dose Ordered Sig/Pankaj Route PRN Reason Start Time Stop Time Status Last Admin Dose Admin Atorvastatin Calcium (Lipitor) 10 mg BEDTIME ORAL 12/29/19 21:00 03/28/20 20:59 12/31/19 22:20 Calcium/Vitamin D (OsCal D) 1 tab DAILY ORAL 12/29/19 09:00 03/28/20 08:59 01/01/20 08:44 Clonazepam (KlonoPIN) 0.5 mg DAILY ORAL 12/29/19 09:00 01/05/20 08:59 01/01/20 08:45 Docusate Sodium (Colace) 100 mg TWICE A DAY ORAL 12/30/19 09:00 01/29/20 08:59 01/01/20 08:45 Heparin Sodium (Porcine) (Heparin 5000 units/ml) 5,000 units EVERY 12 HOURS SUBQ 12/29/19 21:00 02/12/20 20:59 01/01/20 08:46 Levetiracetam (Keppra) 1,000 mg Q12HR ORAL 12/29/19 21:00 02/12/20 20:59 01/01/20 08:44 Lorazepam (Ativan) 1 mg EVERY 8 HOURS PRN ORAL For Anxiety 12/29/19 02:15 01/05/20 02:14 Metoprolol Tartrate (Lopressor) 50 mg EVERY 12 HOURS ORAL 12/30/19 21:00 03/29/20 08:59 12/31/19 22:20 Oxcarbazepine (TrileptaL) 150 mg BID@0900,2100 ORAL 12/29/19 09:00 02/12/20 08:59 01/01/20 08:44 Pantoprazole (Protonix) 40 mg DAILY ORAL 12/30/19 09:00 01/29/20 08:59 01/01/20 08:44 Tamsulosin HCl (Flomax) 0.4 mg BEDTIME ORAL 12/29/19 21:00 01/28/20 20:59 12/31/19 22:20 Josh Hudson MD Jan 01, 2020 10:16
[2020-01-01 12:00] VITALS: BP 94/66
--- NOTE | 2020-01-01 14:07 | Neurology Progress Note ---
Interim History Interim History Interim History Mr. Hao Bautista is a 49-year-old, right-handed, gentleman, who does have a past history of hypertension, dyslipidemia, psychosis, left-sided weakness, and epilepsy with questionable type of seizures for which she is on Dilantin 300 mg daily. He apparently lives in a detention and had a breakthrough seizure as a result of which she was brought into the [facility] emergency room on 12/28/2019. On being evaluated in the emergency room he had a temperature elevated to 100.8 F, he was also tachycardic and tachypneic. His Dilantin level was subtherapeutic. A chest x-ray revealed a questionable pneumonic process. He feels well. He has had no further seizures. He continues to be cognitively impoverished. All he wants is to have a cup of coffee. He denies any new neurological symptoms. Review of Systems Neuro Review of Systems Benign. Objective Physical Exam Last Vital Signs Date Time Temp Pulse Resp B/P (MAP) Pulse Ox O2 Delivery O2 Flow Rate FiO2 01/01/20 12:00 2.0 01/01/20 12:00 97.3 99 19 94/66 (75) 97 01/01/20 09:00 Nasal Cannula 12/29/19 00:10 97 Neurologic Exam Objective PHYSICAL EXAMINATION: GENERAL: The patient is a well developed, well nourished, , gentleman, lying in bed, in no acute distress. HEAD: Normocephalic with a right-sided craniectomy. NECK: No neck rigidity was observed. EENT: Benign. NEUROLOGIC EXAMINATION: MENTAL STATUS EXAMINATION: He was awake and alert. He was oriented to self only. He was able to recall 3/3 words immediately but could not remember any of them in 1 minute and 3 minutes. He was unable to tell me who the present president is. He was unable to cooperate for further mental status testing. SPEECH: He had a moderate dysarthria. LANGUAGE: He had problems with comprehension and expression of language. CRANIAL NERVE EXAMINATION: II: The visual muller were intact to confrontation testing. III, IV, : External ocular movements were full and pupils 3 mm in diameter equal, round, regular and reactive to light. V: The facial sensations were normal, and the temporales, masseters and pterygoids functioned normally. VII: He had a left seventh central facial paresis. VIII: He was able to hear well bilaterally and had no nystagmus. IX: The palate moved symmetrically on phonation. X: There was no hoarseness of voice. XI: The sternocleidomastoids and trapezii functioned normally. XII: The tongue was in the midline without any fasciculations or atrophy. MOTOR SYSTEM: The tone was increased in all 4 extremities with spasticity more marked on the left than on the right. Examination of muscle mass revealed bilateral ankle cord contractures. Examination of power was exceedingly difficult to perform due to varying degrees of cooperation. He however had a definite left greater than right paresis. SENSORY EXAMINATION: He responded appropriately to deep pain but could not cooperate for the sensory modalities. COORDINATION: Could not be tested. REFLEXES: 1+ on the right and 1++ on the left at the biceps, triceps, brachioradialis, and knees. 0 at both ankles. The plantar responses were flexor bilaterally. STANCE & GAIT: Not be tested. Impression/Recommendations Diagnostic Impression 1. Mr. Hao Bautista is a 49-year-old, right-handed, gentleman, who does have a past history of hypertension, dyslipidemia, psychosis, left-sided weakness, and epilepsy with questionable type of seizures for which she is on Dilantin 300 mg daily. 2. He apparently lives in a detention and had a breakthrough seizure as a result of which she was brought into the [facility] emergency room on 12/28/2019. On being evaluated in the emergency room he had a temperature elevated to 100.8 F, he was also tachycardic and tachypneic. His Dilantin level was subtherapeutic. A chest x-ray revealed a questionable pneumonic process. 3. He feels well. He has had no further seizures. He continues to be cognitively impoverished. All he wants is to have a cup of coffee. He denies any new neurological symptoms. 4. On neurological examination, at this time, he has significant problems with orientation, recent and remote memory, and other cognitive function. He also has a significant dysarthria and in addition language problems. He is definitely weaker on the left side compared to the right and his deep tendon reflexes are also brisker on the left side compared to the right. 5. EEG performed on 12/29/2019 revealed a moderate encephalopathy and right frontocentral temporal dysfunction. No interictal discharges were seen. 6. The CT scan of the brain performed on 12/29/2019 revealed a right convexity craniectomy. There was a large area of encephalomalacia involving the right frontal lobe and extending into the basal ganglia. There was a less extensive but still sizable area of encephalomalacia in the left frontal lobe. In addition multiple foci of hyperattenuation were seen in the right anterior frontal cortex, and right parietal cortex. 7. 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 8. He has continued to be seizure-free since he has been in the hospital. Recommendations 1. Continue present management. 2. Continue to Keppra 1 g every 12 hours. 3. Continue to correct metabolic imbalances and treat questionable infection as deemed necessary. 4. Observe. Mukehs Haas M.D., M.S.P.H. Neurologist & Clinical Neurophysiologist Mukesh Haas MD Jan 01, 2020 14:07
[2020-01-01 16:00] VITALS: BP 122/90
[2020-01-01] MEDS: LORazepam 1mg tab ORAL PRN (17:34)
[2020-01-01 20:00] VITALS: BP 108/75
--- NOTE | 2020-01-01 20:11 | Infectious Diseases Prog Note ---
Assessment/Plan Problems: (1) Suspected COVID-19 virus infection Assessment & Plan: was ruled out with negative PCR , may remove from enhanced droplets isolation . monitor off antibiotics (2) Febrile illness, acute Assessment & Plan: unclear source with negative PCR for COVID 19 , less likely pneumonia , off antibiotics for now since blood cultures and PCR test are negative (3) Seizure disorder Assessment & Plan: continue keppra to control his seizure with precaution, stop antibiotics , follow up with neurology Subjective Allergies: Coded Allergies: No Known Allergies (Unverified , 05/07/16) Subjective he was more awake and coherent , has dry cough but no phlegm, no shortness of breath no fever or chills today no diarrhea Objective Vital Signs Last 24 Hour Vital Signs Date Time Temp Pulse Resp B/P (MAP) Pulse Ox O2 Delivery O2 Flow Rate FiO2 01/01/20 16:00 98.1 95 19 122/90 (101) 96 01/01/20 16:00 2.0 01/01/20 15:11 99 01/01/20 12:00 2.0 01/01/20 12:00 97.3 99 19 94/66 (75) 97 01/01/20 11:35 97 01/01/20 10:15 97 01/01/20 09:00 Nasal Cannula 2.0 01/01/20 08:47 103 104/70 01/01/20 08:00 97.9 103 18 104/70 (81) 95 01/01/20 08:00 2.0 01/01/20 04:00 2.0 01/01/20 04:00 98.1 94 18 129/86 (100) 96 01/01/20 04:00 96 01/01/20 00:00 96 01/01/20 00:00 2.0 01/01/20 00:00 97.4 91 20 136/75 (95) 96 12/31/19 22:20 98 127/85 12/31/19 21:00 Nasal Cannula 2.0 Height (Feet): 5 Height (Inches): 10.00 Weight (Pounds): 170 General Appearance: WD/WN, no acute distress HEENT: normocephalic, atraumatic, anicteric, mucous membranes moist, PERRL Respiratory/Chest: chest wall non-tender, lungs clear, normal breath sounds, no respiratory distress, no accessory muscle use Cardiovascular: normal peripheral pulses, normal rate, regular rhythm, no gallop/murmur, no JVD Abdomen: normal bowel sounds, soft, non tender, no organomegaly, non distended , no mass, no scars Extremities: no cyanosis, no clubbing Skin: no rash, no lesions Neurologic/Psychiatric: alert, responsive Lymphatic: no neck adenopathy, no groin adenopathy Musculoskeletal: normal muscle bulk Current Medications Medications (Trade) Dose Ordered Sig/Pankaj Route PRN Reason Start Time Stop Time Status Last Admin Dose Admin Atorvastatin Calcium (Lipitor) 10 mg BEDTIME ORAL 12/29/19 21:00 03/28/20 20:59 12/31/19 22:20 Calcium/Vitamin D (OsCal D) 1 tab DAILY ORAL 12/29/19 09:00 03/28/20 08:59 01/01/20 08:44 Clonazepam (KlonoPIN) 0.5 mg DAILY ORAL 12/29/19 09:00 01/05/20 08:59 01/01/20 08:45 Docusate Sodium (Colace) 100 mg TWICE A DAY ORAL 12/30/19 09:00 01/29/20 08:59 01/01/20 17:34 Heparin Sodium (Porcine) (Heparin 5000 units/ml) 5,000 units EVERY 12 HOURS SUBQ 12/29/19 21:00 02/12/20 20:59 01/01/20 08:46 Levetiracetam (Keppra) 1,000 mg Q12HR ORAL 12/29/19 21:00 02/12/20 20:59 01/01/20 08:44 Lorazepam (Ativan) 1 mg EVERY 8 HOURS PRN ORAL For Anxiety 12/29/19 02:15 01/05/20 02:14 01/01/20 17:34 Metoprolol Tartrate (Lopressor) 50 mg EVERY 12 HOURS ORAL 12/30/19 21:00 03/29/20 08:59 12/31/19 22:20 Oxcarbazepine (TrileptaL) 150 mg BID@0900,2100 ORAL 12/29/19 09:00 02/12/20 08:59 01/01/20 08:44 Pantoprazole (Protonix) 40 mg DAILY ORAL 12/30/19 09:00 01/29/20 08:59 01/01/20 08:44 Tamsulosin HCl (Flomax) 0.4 mg BEDTIME ORAL 12/29/19 21:00 01/28/20 20:59 12/31/19 22:20 Katherine Fagan M.D. Jan 01, 2020 20:11
[2020-01-01] MEDS: Tamsulosin 0.4mg cap ORAL SCH (20:29)
[2020-01-02] VITALS: BP 120/72
[2020-01-02 04:00] VITALS: BP 105/71
[2020-01-02 07:49] LABS: ALANINE AMINOTRANSFERASE 109 U/L (12-78); ALBUMIN 2.9 G/DL (3.4-5.0); ALBUMIN/GLOBULIN RATIO 0.6 (1.0-2.7); ALKALINE PHOSPHATASE 64 U/L (46-116); ANION GAP 12 mmol/L (5-15); ASPARTATE AMINO TRANSFERASE 169 U/L (15-37); BILIRUBIN,TOTAL 0.4 MG/DL (0.2-1.0); BLOOD UREA NITROGEN 6 mg/dL (7-18); CALCIUM 8.2 MG/DL (8.5-10.1); CARBON DIOXIDE 25 MMOL/L (21-32); CHLORIDE 101 MMOL/L (98-107); CREATININE 0.8 MG/DL (0.55-1.30); POTASSIUM 3.6 MMOL/L (3.5-5.1); SODIUM 137 MMOL/L (136-145)
[2020-01-02 08:00] VITALS: BP 98/70
[2020-01-02] MEDS: OXcarbazepine 150mg tab ORAL SCH ×2 (09:38→20:34)
[2020-01-02] MEDS: Calcium Carbonate 500mg w/Vit D 200iu tab ORAL SCH (09:39)
[2020-01-02] MEDS: Metoprolol Tartrate 50mg tab ORAL SCH ×2 (09:39→20:35)
[2020-01-02] MEDS: clonazePAM 0.5mg tab ORAL SCH (09:39)
[2020-01-02] MEDS: Docusate 100mg cap ORAL SCH ×2 (09:40→17:48)
[2020-01-02] MEDS: Heparin 5000 units/ml inj SUBQ SCH ×2 (09:48→20:34)
--- NOTE | 2020-01-02 10:23 | Pulmonology Progress Note ---
Assessment/Plan Assessment/Plan IMPRESSION: 1. Seizure disorder. 2. Subtherapeutic Dilantin level. 3. Parkinson's. 4. Previous craniotomy. 5. Atelectasis DISCUSSION: Continue current medications and care. Hold off antibiotics. Seen by neurology Respiratory status is stable On 2L/min O2 COVID 19 negative CXR shows atelectasis Josh Hudson M.D. Subjective Interval Events: None new Constitutional: Reports: no symptoms HEENT: Repors: no symptoms Respiratory: Reports: no symptoms Cardiovascular: Reports: no symptoms Allergies: Coded Allergies: No Known Allergies (Unverified , 05/07/16) Objective Last 24 Hour Vital Signs Date Time Temp Pulse Resp B/P (MAP) Pulse Ox O2 Delivery O2 Flow Rate FiO2 01/02/20 09:39 84 98/70 01/02/20 08:17 84 01/02/20 08:00 96.4 83 18 98/70 (79) 96 01/02/20 04:00 94 01/02/20 04:00 2.0 01/02/20 04:00 98.1 93 17 105/71 (82) 95 01/02/20 00:00 97.9 89 18 120/72 (88) 96 01/02/20 00:00 2.0 01/01/20 23:47 98 01/01/20 21:00 Nasal Cannula 2.0 01/01/20 20:29 95 135/82 01/01/20 20:00 98.9 96 19 108/75 (86) 99 01/01/20 20:00 2.0 01/01/20 19:01 108 01/01/20 16:00 98.1 95 19 122/90 (101) 96 01/01/20 16:00 2.0 01/01/20 15:11 99 01/01/20 12:00 2.0 01/01/20 12:00 97.3 99 19 94/66 (75) 97 01/01/20 11:35 97 Intake and Output 01/01/20 01/02/20 19:00 07:00 Intake Total 720 ml Balance 720 ml Intake Oral 720 ml # Voids 4 2 General Appearance: no acute distress HEENT: normocephalic Respiratory/Chest: chest wall non-tender Cardiovascular: normal peripheral pulses Abdomen: normal bowel sounds Laboratory Tests 01/02/20 05:54: Sodium Level 137, Potassium Level 3.6, Chloride Level 101, Carbon Dioxide Level 25, Anion Gap 12, Blood Urea Nitrogen 6L, Creatinine 0.8, Estimat Glomerular Filtration Rate > 60, Glucose Level 92, Calcium Level 8.2L, Total Bilirubin 0.4 , Aspartate Amino Transf (AST/SGOT) 169H, Alanine Aminotransferase (ALT/SGPT) 109H, Alkaline Phosphatase 64, Total Protein 7.5, Albumin 2.9L, Globulin 4.6, Albumin/Globulin Ratio 0.6L Current Medications Medications (Trade) Dose Ordered Sig/Pankaj Route PRN Reason Start Time Stop Time Status Last Admin Dose Admin Atorvastatin Calcium (Lipitor) 10 mg BEDTIME ORAL 12/29/19 21:00 03/28/20 20:59 01/01/20 20:28 Calcium/Vitamin D (OsCal D) 1 tab DAILY ORAL 12/29/19 09:00 03/28/20 08:59 01/02/20 09:39 Clonazepam (KlonoPIN) 0.5 mg DAILY ORAL 12/29/19 09:00 01/05/20 08:59 01/02/20 09:39 Docusate Sodium (Colace) 100 mg TWICE A DAY ORAL 12/30/19 09:00 01/29/20 08:59 01/02/20 09:40 Heparin Sodium (Porcine) (Heparin 5000 units/ml) 5,000 units EVERY 12 HOURS SUBQ 12/29/19 21:00 02/12/20 20:59 01/02/20 09:48 Levetiracetam (Keppra) 1,000 mg Q12HR ORAL 12/29/19 21:00 02/12/20 20:59 01/02/20 09:39 Lorazepam (Ativan) 1 mg EVERY 8 HOURS PRN ORAL For Anxiety 12/29/19 02:15 01/05/20 02:14 01/01/20 17:34 Metoprolol Tartrate (Lopressor) 50 mg EVERY 12 HOURS ORAL 12/30/19 21:00 03/29/20 08:59 01/02/20 09:39 Oxcarbazepine (TrileptaL) 150 mg BID@0900,2100 ORAL 12/29/19 09:00 02/12/20 08:59 01/02/20 09:38 Pantoprazole (Protonix) 40 mg DAILY ORAL 12/30/19 09:00 01/29/20 08:59 01/02/20 09:39 Tamsulosin HCl (Flomax) 0.4 mg BEDTIME ORAL 12/29/19 21:00 01/28/20 20:59 01/01/20 20:29 Josh Hudson MD Jan 02, 2020 10:23
--- NOTE | 2020-01-02 12:19 | Neurology Progress Note ---
Interim History Interim History Interim History Mr. Hao Bautista is a 49-year-old, right-handed, gentleman, who does have a past history of hypertension, dyslipidemia, psychosis, left-sided weakness, and epilepsy with questionable type of seizures for which she is on Dilantin 300 mg daily. He apparently lives in a jail and had a breakthrough seizure as a result of which she was brought into the [facility] emergency room on 12/28/2019. On being evaluated in the emergency room he had a temperature elevated to 100.8 F, he was also tachycardic and tachypneic. His Dilantin level was subtherapeutic. A chest x-ray revealed a questionable pneumonic process. He feels well. He has had no further seizures. He continues to be cognitively impoverished. All he wants is to have a cup of coffee - NOW. He denies any new neurological symptoms. Review of Systems Neuro Review of Systems Benign. Objective Physical Exam Last Vital Signs Date Time Temp Pulse Resp B/P (MAP) Pulse Ox O2 Delivery O2 Flow Rate FiO2 01/02/20 09:39 84 98/70 01/02/20 09:30 Nasal Cannula 2.0 01/02/20 08:00 96.4 18 96 12/29/19 00:10 97 Laboratory Tests Test 01/02/20 05:54 Sodium Level 137 MMOL/L (136-145) Potassium Level 3.6 MMOL/L (3.5-5.1) Chloride Level 101 MMOL/L (98-107) Carbon Dioxide Level 25 MMOL/L (21-32) Anion Gap 12 mmol/L (5-15) Blood Urea Nitrogen 6 mg/dL (7-18) L Creatinine 0.8 MG/DL (0.55-1.30) Estimat Glomerular Filtration Rate > 60 mL/min (>60) Glucose Level 92 MG/DL (74-106) Calcium Level 8.2 MG/DL (8.5-10.1) L Total Bilirubin 0.4 MG/DL (0.2-1.0) Aspartate Amino Transf (AST/SGOT) 169 U/L (15-37) H Alanine Aminotransferase (ALT/SGPT) 109 U/L (12-78) H Alkaline Phosphatase 64 U/L (46-116) Total Protein 7.5 G/DL (6.4-8.2) Albumin 2.9 G/DL (3.4-5.0) L Globulin 4.6 g/dL Albumin/Globulin Ratio 0.6 (1.0-2.7) L Neurologic Exam Objective PHYSICAL EXAMINATION: GENERAL: The patient is a well developed, well nourished, , gentleman, lying in bed, in no acute distress. HEAD: Normocephalic with a right-sided craniectomy. NECK: No neck rigidity was observed. EENT: Benign. NEUROLOGIC EXAMINATION: MENTAL STATUS EXAMINATION: He was awake and alert. He was oriented to self only. He was able to recall 3/3 words immediately but could not remember any of them in 1 minute and 3 minutes. He was unable to tell me who the present president is. He was unable to cooperate for further mental status testing. SPEECH: He had a moderate dysarthria. LANGUAGE: He had problems with comprehension and expression of language. CRANIAL NERVE EXAMINATION: II: The visual muller were intact to confrontation testing. III, IV, : External ocular movements were full and pupils 3 mm in diameter equal, round, regular and reactive to light. V: The facial sensations were normal, and the temporales, masseters and pterygoids functioned normally. VII: He had a left seventh central facial paresis. VIII: He was able to hear well bilaterally and had no nystagmus. IX: The palate moved symmetrically on phonation. X: There was no hoarseness of voice. XI: The sternocleidomastoids and trapezii functioned normally. XII: The tongue was in the midline without any fasciculations or atrophy. MOTOR SYSTEM: The tone was increased in all 4 extremities with spasticity more marked on the left than on the right. Examination of muscle mass revealed bilateral ankle cord contractures. Examination of power was exceedingly difficult to perform due to varying degrees of cooperation. He however had a definite left greater than right paresis. SENSORY EXAMINATION: He responded appropriately to deep pain but could not cooperate for the sensory modalities. COORDINATION: Could not be tested. REFLEXES: 1+ on the right and 1++ on the left at the biceps, triceps, brachioradialis, and knees. 0 at both ankles. The plantar responses were flexor bilaterally. STANCE & GAIT: Could not be tested. Impression/Recommendations Diagnostic Impression 1. Mr. Hao Bautista is a 49-year-old, right-handed, gentleman, who does have a past history of hypertension, dyslipidemia, psychosis, left-sided weakness, and epilepsy with questionable type of seizures for which she is on Dilantin 300 mg daily. 2. He apparently lives in a jail and had a breakthrough seizure as a result of which she was brought into the [facility] emergency room on 12/28/2019. On being evaluated in the emergency room he had a temperature elevated to 100.8 F, he was also tachycardic and tachypneic. His Dilantin level was subtherapeutic. A chest x-ray revealed a questionable pneumonic process. 3. He feels well. He has had no further seizures. He continues to be cognitively impoverished. All he wants is to have a cup of coffee - NOW. He denies any new neurological symptoms. 4. On neurological examination, at this time, he has significant problems with orientation, recent and remote memory, and other cognitive function. He also has a significant dysarthria and in addition language problems. He is definitely weaker on the left side compared to the right and his deep tendon reflexes are also brisker on the left side compared to the right. 5. EEG performed on 12/29/2019 revealed a moderate encephalopathy and right frontocentral temporal dysfunction. No interictal discharges were seen. 6. The CT scan of the brain performed on 12/29/2019 revealed a right convexity craniectomy. There was a large area of encephalomalacia involving the right frontal lobe and extending into the basal ganglia. There was a less extensive but still sizable area of encephalomalacia in the left frontal lobe. In addition multiple foci of hyperattenuation were seen in the right anterior frontal cortex, and right parietal cortex. 7. 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 8. He has continued to be seizure-free since he has been in the hospital. Recommendations 1. Continue present management. 2. Continue to Keppra 1 g every 12 hours. 3. Continue to correct metabolic imbalances and treat questionable infection as deemed necessary. 4. Observe. Mukesh Haas M.D., M.S.P.H. Neurologist & Clinical Neurophysiologist Mukesh Haas MD Jan 02, 2020 12:19
[2020-01-02 12:39] VITALS: BP 107/74
[2020-01-02] MEDS ORDERED: KEPPRA500 MG ORAL (12:57)
[2020-01-02] MEDS ORDERED: METOPROLOL TART50 MG ORAL (12:57)
--- NOTE | 2020-01-02 13:00 | General Progress Note ---
Assessment/Plan Assessment/Plan: S,O: awake , AOX1, seems comfortable. PHYSICAL EXAMINATION:HEAD AND NECK: Atraumatic and normocephalic. CHEST: Negative for acute pathology. No wheezing. No crackles. HEART: S1 and S2. Regular rate and rhythm. ABDOMEN: Soft. No organomegaly. MUSCULOSKELETAL: Left-sided hemiparesis. NEUROLOGIC: The patient is awake and alert x1. LABORATORY AND DIAGNOSTIC DATA: Labs dated 01/01 reviewed. Meds: reviewed and reconcile. ASSESSMENT: 1. Acute breakthrough seizure secondary to subtherapeutic serum antiepileptic medications and possible new focal lesion/ICH 2. Hypertension. 3. Fever, likely postictal, possibility of COVID-19 infection cannot be excluded. 4. Chronic encephalopathy with decline in cognition. 5. Hyperlipidemia. 6. GI and DVT prophylaxis. PLAN OF CARE: 1. Status post IV antiepileptic administration. 2. We will continue care home medications. 3. Continue with seizure precautions. 4. Infectious Diseases, Pulmonary, and Cardiology have been consulted. Plan: Sz free I will stop ASA, . I called the [employer] , Aunt ( Charli Curran) on December 29 Notes from Neurology reviewed Off isolation DC back to [facility] D/w neurology. agreed for outpatient followup Subjective Allergies: Coded Allergies: No Known Allergies (Unverified , 05/07/16) Objective Last 24 Hour Vital Signs Date Time Temp Pulse Resp B/P (MAP) Pulse Ox O2 Delivery O2 Flow Rate FiO2 01/02/20 12:40 90 01/02/20 12:39 96.4 90 18 107/74 (85) 96 01/02/20 09:39 84 98/70 01/02/20 09:30 Nasal Cannula 2.0 01/02/20 08:17 84 01/02/20 08:00 96.4 83 18 98/70 (79) 96 01/02/20 04:00 94 01/02/20 04:00 2.0 01/02/20 04:00 98.1 93 17 105/71 (82) 95 01/02/20 00:00 97.9 89 18 120/72 (88) 96 01/02/20 00:00 2.0 01/01/20 23:47 98 01/01/20 21:00 Nasal Cannula 2.0 01/01/20 20:29 95 135/82 01/01/20 20:00 98.9 96 108/75 (86) 99 01/01/20 20:00 2.0 01/01/20 19:01 108 01/01/20 16:00 98.1 95 19 122/90 (101) 96 01/01/20 16:00 2.0 01/01/20 15:11 99 Intake and Output 01/01/20 01/02/20 19:00 07:00 Intake Total 720 ml Balance 720 ml Intake Oral 720 ml # Voids 4 2 Laboratory Tests 01/02/20 05:54: Sodium Level 137, Potassium Level 3.6, Chloride Level 101, Carbon Dioxide Level 25, Anion Gap 12, Blood Urea Nitrogen 6L, Creatinine 0.8, Estimat Glomerular Filtration Rate > 60, Glucose Level 92, Calcium Level 8.2L, Total Bilirubin 0.4 , Aspartate Amino Transf (AST/SGOT) 169H, Alanine Aminotransferase (ALT/SGPT) 109H, Alkaline Phosphatase 64, Total Protein 7.5, Albumin 2.9L, Globulin 4.6, Albumin/Globulin Ratio 0.6L Height (Feet): 5 Height (Inches): 10.00 Weight (Pounds): 170 Caleb Whitfield MD Jan 02, 2020 13:00
[2020-01-02 16:21] VITALS: BP 101/79
[2020-01-02] MEDS: LORazepam 1mg tab ORAL PRN (16:38)
[2020-01-02 20:00] VITALS: BP 112/78
[2020-01-02] MEDS: Tamsulosin 0.4mg cap ORAL SCH (20:35)
--- NOTE | 2020-01-02 21:07 | Infectious Diseases Prog Note ---
Assessment/Plan Problems: (1) Suspected COVID-19 virus infection Assessment & Plan: was ruled out with negative PCR , may remove from enhanced droplets isolation . monitor off antibiotics (2) Febrile illness, acute Assessment & Plan: unclear source with negative PCR for COVID 19 , less likely pneumonia , off antibiotics for now since blood cultures and PCR test are negative (3) Seizure disorder Assessment & Plan: continue keppra to control his seizure with precaution, stop antibiotics , follow up with neurology Subjective ROS Limited/Unobtainable: Yes Allergies: Coded Allergies: No Known Allergies (Unverified , 05/07/16) Subjective he was more awake and coherent , has dry cough but no phlegm, no shortness of breath no fever or chills today no diarrhea Objective Vital Signs Last 24 Hour Vital Signs Date Time Temp Pulse Resp B/P (MAP) Pulse Ox O2 Delivery O2 Flow Rate FiO2 01/02/20 20:35 92 110/71 01/02/20 16:22 98 01/02/20 16:21 97.0 98 20 101/79 (86) 95 01/02/20 12:40 90 01/02/20 12:39 96.4 90 18 107/74 (85) 96 01/02/20 09:39 84 98/70 01/02/20 09:30 Nasal Cannula 2.0 01/02/20 08:17 84 01/02/20 08:00 96.4 83 18 98/70 (79) 96 01/02/20 04:00 94 01/02/20 04:00 2.0 01/02/20 04:00 98.1 93 17 105/71 (82) 95 01/02/20 00:00 97.9 89 18 120/72 (88) 96 01/02/20 00:00 2.0 01/01/20 23:47 98 Height (Feet): 5 Height (Inches): 10.00 Weight (Pounds): 170 General Appearance: WD/WN, no acute distress HEENT: normocephalic, atraumatic, anicteric, mucous membranes moist, PERRL Respiratory/Chest: chest wall non-tender, lungs clear, normal breath sounds, no respiratory distress, no accessory muscle use Cardiovascular: normal peripheral pulses, normal rate, regular rhythm, no gallop/murmur, no JVD Abdomen: normal bowel sounds, soft, non tender, no organomegaly, non distended , no mass, no scars Genitourinary: normal external genitalia Extremities: no cyanosis, no clubbing Skin: no rash, no lesions, no ulcers Neurologic/Psychiatric: alert Lymphatic: no neck adenopathy, no groin adenopathy Musculoskeletal: normal muscle bulk, no effusion Laboratory Tests Test 01/02/20 05:54 Sodium Level 137 MMOL/L (136-145) Potassium Level 3.6 MMOL/L (3.5-5.1) Chloride Level 101 MMOL/L (98-107) Carbon Dioxide Level 25 MMOL/L (21-32) Anion Gap 12 mmol/L (5-15) Blood Urea Nitrogen 6 mg/dL (7-18) L Creatinine 0.8 MG/DL (0.55-1.30) Estimat Glomerular Filtration Rate > 60 mL/min (>60) Glucose Level 92 MG/DL (74-106) Calcium Level 8.2 MG/DL (8.5-10.1) L Total Bilirubin 0.4 MG/DL (0.2-1.0) Aspartate Amino Transf (AST/SGOT) 169 U/L (15-37) H Alanine Aminotransferase (ALT/SGPT) 109 U/L (12-78) H Alkaline Phosphatase 64 U/L (46-116) Total Protein 7.5 G/DL (6.4-8.2) Albumin 2.9 G/DL (3.4-5.0) L Globulin 4.6 g/dL Albumin/Globulin Ratio 0.6 (1.0-2.7) L Current Medications Medications (Trade) Dose Ordered Sig/Pankaj Route PRN Reason Start Time Stop Time Status Last Admin Dose Admin Calcium/Vitamin D (OsCal D) 1 tab DAILY ORAL 12/29/19 09:00 03/28/20 08:59 01/02/20 09:39 Clonazepam (KlonoPIN) 0.5 mg DAILY ORAL 12/29/19 09:00 01/05/20 08:59 01/02/20 09:39 Docusate Sodium (Colace) 100 mg TWICE A DAY ORAL 12/30/19 09:00 01/29/20 08:59 01/02/20 17:48 Heparin Sodium (Porcine) (Heparin 5000 units/ml) 5,000 units EVERY 12 HOURS SUBQ 12/29/19 21:00 02/12/20 20:59 01/02/20 20:34 Levetiracetam (Keppra) 1,000 mg Q12HR ORAL 12/29/19 21:00 02/12/20 20:59 01/02/20 20:34 Lorazepam (Ativan) 1 mg EVERY 8 HOURS PRN ORAL For Anxiety 12/29/19 02:15 01/05/20 02:14 01/02/20 16:38 Metoprolol Tartrate (Lopressor) 50 mg EVERY 12 HOURS ORAL 12/30/19 21:00 03/29/20 08:59 01/02/20 20:35 Oxcarbazepine (TrileptaL) 150 mg BID@0900,2100 ORAL 12/29/19 09:00 02/12/20 08:59 01/02/20 20:34 Pantoprazole (Protonix) 40 mg DAILY ORAL 12/30/19 09:00 01/29/20 08:59 01/02/20 09:39 Tamsulosin HCl (Flomax) 0.4 mg BEDTIME ORAL 12/29/19 21:00 01/28/20 20:59 01/02/20 20:35 Katherine Fagan M.D. Jan 02, 2020 21:07
[2020-01-03] VITALS: BP 115/81
[2020-01-03 04:00] VITALS: BP 105/65
[2020-01-03 08:00] VITALS: BP 99/69
--- NOTE | 2020-01-03 09:38 | General Progress Note ---
Assessment/Plan Assessment/Plan: S,O: awake , AOX1, seems comfortable. PHYSICAL EXAMINATION:HEAD AND NECK: Atraumatic and normocephalic. CHEST: Negative for acute pathology. No wheezing. No crackles. HEART: S1 and S2. Regular rate and rhythm. ABDOMEN: Soft. No organomegaly. MUSCULOSKELETAL: Left-sided hemiparesis. NEUROLOGIC: The patient is awake and alert x1. LABORATORY AND DIAGNOSTIC DATA: Labs dated 01/01 reviewed. Meds: reviewed and reconcile. ASSESSMENT: 1. Acute breakthrough seizure secondary to subtherapeutic serum antiepileptic medications and possible new focal lesion/ICH 2. Hypertension. 3. Fever, likely postictal, possibility of COVID-19 infection cannot be excluded. 4. Chronic encephalopathy with decline in cognition. 5. Hyperlipidemia. 6. GI and DVT prophylaxis. PLAN OF CARE: 1. Status post IV antiepileptic administration. 2. We will continue mcc medications. 3. Continue with seizure precautions. 4. Infectious Diseases, Pulmonary, and Cardiology have been consulted. Plan: Sz free I will stop ASA, . I called the [employer] , Aunt ( Charli Curran) on December 29 Notes from Neurology reviewed Off isolation DC back to [facility] D/w neurology. agreed for outpatient followup Subjective Allergies: Coded Allergies: No Known Allergies (Unverified , 05/07/16) Objective Last 24 Hour Vital Signs Date Time Temp Pulse Resp B/P (MAP) Pulse Ox O2 Delivery O2 Flow Rate FiO2 01/03/20 08:04 Nasal Cannula 2.0 01/03/20 08:00 98.4 88 20 99/69 (79) 96 01/03/20 04:00 97.0 99 18 105/65 (78) 97 01/03/20 04:00 84 01/03/20 00:00 98.0 93 18 115/81 (92) 95 01/03/20 00:00 88 01/02/20 21:00 Nasal Cannula 2.0 01/02/20 20:35 92 110/71 01/02/20 20:00 104 01/02/20 20:00 98.1 100 18 112/78 (89) 94 01/02/20 16:22 98 01/02/20 16:21 97.0 98 20 101/79 (86) 95 01/02/20 12:40 90 01/02/20 12:39 96.4 90 18 107/74 (85) 96 01/02/20 09:39 84 98/70 Intake and Output 01/02/20 01/03/20 19:00 07:00 Intake Total 780 ml Output Total 400 ml Balance 780 ml -400 ml Intake Oral 780 ml Output Urine Total 400 ml # Voids 3 # Bowel Movements 3 Height (Feet): 5 Height (Inches): 10.00 Weight (Pounds): 170 Caleb Whitfield MD Jan 03, 2020 09:38
[2020-01-03] MEDS: OXcarbazepine 150mg tab ORAL SCH (10:06)
[2020-01-03] MEDS: Heparin 5000 units/ml inj SUBQ SCH (10:06)
[2020-01-03] MEDS: Calcium Carbonate 500mg w/Vit D 200iu tab ORAL SCH (10:07)
[2020-01-03] MEDS: clonazePAM 0.5mg tab ORAL SCH (10:07)
[2020-01-03] MEDS: Docusate 100mg cap ORAL SCH (10:08)
[2020-01-03] MEDS: Metoprolol Tartrate 50mg tab ORAL SCH (10:09)
--- NOTE | 2020-01-03 11:08 | Pulmonology Progress Note ---
Assessment/Plan Assessment/Plan IMPRESSION: 1. Seizure disorder. 2. Subtherapeutic Dilantin level. 3. Parkinson's. 4. Previous craniotomy. 5. Atelectasis DISCUSSION: Continue current medications and care. Seen by neurology Respiratory status is stable On 2L/min O2 COVID 19 negative CXR shows atelectasis Josh Hudson M.D. Subjective Interval Events: None new Constitutional: Reports: no symptoms HEENT: Repors: no symptoms Respiratory: Reports: no symptoms Cardiovascular: Reports: no symptoms Gastrointestinal/Abdominal: Reports: no symptoms Allergies: Coded Allergies: No Known Allergies (Unverified , 05/07/16) Objective Last 24 Hour Vital Signs Date Time Temp Pulse Resp B/P (MAP) Pulse Ox O2 Delivery O2 Flow Rate FiO2 01/03/20 10:09 88 99/69 01/03/20 08:04 Nasal Cannula 2.0 01/03/20 08:00 98.4 88 20 99/69 (79) 96 01/03/20 04:00 97.0 99 18 105/65 (78) 97 01/03/20 04:00 84 01/03/20 00:00 98.0 93 18 115/81 (92) 95 01/03/20 00:00 88 01/02/20 21:00 Nasal Cannula 2.0 01/02/20 20:35 92 110/71 01/02/20 20:00 104 01/02/20 20:00 98.1 100 18 112/78 (89) 94 01/02/20 16:22 98 01/02/20 16:21 97.0 98 20 101/79 (86) 95 01/02/20 12:40 90 01/02/20 12:39 96.4 90 18 107/74 (85) 96 Intake and Output 01/02/20 01/03/20 19:00 07:00 Intake Total 780 ml Output Total 400 ml Balance 780 ml -400 ml Intake Oral 780 ml Output Urine Total 400 ml # Voids 3 # Bowel Movements 3 General Appearance: no acute distress HEENT: normocephalic Respiratory/Chest: chest wall non-tender, lungs clear Cardiovascular: normal peripheral pulses Abdomen: normal bowel sounds Current Medications Medications (Trade) Dose Ordered Sig/Panakj Route PRN Reason Start Time Stop Time Status Last Admin Dose Admin Calcium/Vitamin D (OsCal D) 1 tab DAILY ORAL 12/29/19 09:00 03/28/20 08:59 01/03/20 10:07 Clonazepam (KlonoPIN) 0.5 mg DAILY ORAL 12/29/19 09:00 01/05/20 08:59 01/03/20 10:07 Docusate Sodium (Colace) 100 mg TWICE A DAY ORAL 12/30/19 09:00 01/29/20 08:59 01/03/20 10:08 Heparin Sodium (Porcine) (Heparin 5000 units/ml) 5,000 units EVERY 12 HOURS SUBQ 12/29/19 21:00 02/12/20 20:59 01/02/20 20:34 Levetiracetam (Keppra) 1,000 mg Q12HR ORAL 12/29/19 21:00 02/12/20 20:59 01/03/20 10:07 Lorazepam (Ativan) 1 mg EVERY 8 HOURS PRN ORAL For Anxiety 12/29/19 02:15 01/05/20 02:14 01/02/20 16:38 Metoprolol Tartrate (Lopressor) 50 mg EVERY 12 HOURS ORAL 12/30/19 21:00 03/29/20 08:59 01/02/20 20:35 Oxcarbazepine (TrileptaL) 150 mg BID@0900,2100 ORAL 12/29/19 09:00 02/12/20 08:59 01/03/20 10:06 Pantoprazole (Protonix) 40 mg DAILY ORAL 12/30/19 09:00 01/29/20 08:59 01/03/20 10:07 Tamsulosin HCl (Flomax) 0.4 mg BEDTIME ORAL 12/29/19 21:00 01/28/20 20:59 01/02/20 20:35 Josh Hudson MD Jan 03, 2020 11:08
[2020-01-03 12:00] VITALS: BP 119/67
--- NOTE | 2020-01-03 20:04 | Cardiology Progress Note ---
Assessment/Plan Assessment/Plan 1. Sinus tachycardia, resolved, most likely due to underlying sepsis/ hypovolemia and/or bilateral pneumonia. The treatment of this problem is eradicating and controlling the underlying etiologies. 2. Seizure disorder. Subjective Subjective Sinus rhythm at rate of 85. Objective Last 24 Hour Vital Signs Date Time Temp Pulse Resp B/P (MAP) Pulse Ox O2 Delivery O2 Flow Rate FiO2 01/03/20 12:00 98.0 85 20 119/67 (84) 96 01/03/20 11:47 83 01/03/20 10:09 88 99/69 01/03/20 08:04 Nasal Cannula 2.0 01/03/20 08:00 98.4 88 20 99/69 (79) 96 01/03/20 07:58 88 01/03/20 04:00 97.0 99 18 105/65 (78) 97 01/03/20 04:00 84 01/03/20 00:00 98.0 93 18 115/81 (92) 95 01/03/20 00:00 88 01/02/20 21:00 Nasal Cannula 2.0 01/02/20 20:35 92 110/71 Intake and Output 01/02/20 01/03/20 19:00 07:00 Intake Total 780 ml Output Total 400 ml Balance 780 ml -400 ml Intake Oral 780 ml Output Urine Total 400 ml # Voids 3 # Bowel Movements 3 Objective HEENT: Atraumatic and normocephalic. Anicteric. Pupils are equal, round, and reactive to light and accommodation. Extraocular muscles intact. NECK: JVP less than 5 centimeter. No carotid bruit. Carotid upstroke is 2+ bilaterally. CARDIOVASCULAR: Normal S1 and S2. No murmurs, gallops, or rubs. PMI is at fourth intercostal space in the midclavicular line. LUNGS: Diminished breath sounds in the bases. ABDOMEN: Soft, nontender, and nondistended. No hepatosplenomegaly. Positive bowel sounds. EXTREMITIES: No evidence of edema, clubbing, or cyanosis. Peter العلي MD Jan 03, 2020 20:04
--- NOTE | 2020-01-04 11:36 | Discharge Summary ---
Discharge Summary Discharge Summary _ DATE OF ADMISSION: 12/28/2019 DATE OF DISCHARGE: 01/03/2020 DISCHARGED BY: Dr. Whitfield REASON FOR ADMISSION: 49 years old male with past medical history of seizure disorder, hypertension, history of right craniotomy, encephalopathy, Parkinson disease, BPH, hyperlipidemia, anxiety, psychosis, DNR/DNI status, was sent from the [facility] for evaluation due to seizure episode and fever for 1 day. Upon evaluation patient was febrile ,tachycardic, tachypneic and hypoxic. Chest x-ray demonstrated findings consistent with possible developing of infectious infiltrate. Urinalysis revealed no evidence of acute UTI. Laboratory work-up revealed no leukocytosis, stable hemoglobin and hematocrit. Stable electrolytes. Lactic acid 5.1, repeated 1.6. Anion gap 16. Glucose 122. Troponin negative. EKG revealed sinus tachycardia Dilantin level 5.4. Patient was tested for SARS-CoV -2 by PCR. Patient subsequently admitted for further management. CONSULTANTS: interactive media designer Dr. العلي neurologist Dr. Ohara pulmonary Dr. Hudson ID specialist Dr. Fagan [facility]SE: Patient admitted to telemetry floor to isolation room. Patient started on empiric antibiotics. Supplemental oxygen provided and titrated to keep oximetry above 92%. CT of the head demonstrated multiply high attenuation foci in the right frontal and parietal cortex, likely representing small acute hemorrhages. Extensive chronic and postsurgical changes. EEG revealed mild encephalopathy and right frontotemporal and right fronto- centrotemporal dysfunction of the focal nature. Neurologist closely followed. Per neurologist, patient history and neurological examination were more consistent with underlying structural brain disease associated with seizure disorder . A breakthrough seizure episode was associated with a febrile illness. Seizure precaution maintained. Patient started on Keppra. Patient continued to be seizure-free since he was admitted to the hospital. Neurologist recommended to correct metabolic imbalances and treat infection as necessary. Antibiotics provided as per ID specialist recommendation. Blood culture were negative. SARS-CoV-2 by PCR was not detected. The source of acute febrile illness was unclear , possibly was due to breakthrough seizure episode. Follow-up chest x-ray revealed low lung volumes, likely related to shallow inspiration increased interstitial markings throughout the lungs likely related to bronchovascular crowding. Cardiac silhouette was borderline enlarged. Per satellite technician , respiratory status was stable . Chest x-ray showed atelectasis. Fevers resolved. No leukocytosis. Antibiotic stopped. ID specialist recommended close observation. Blood pressure was managed with beta-cle[place]. Flomax continued. DVT prophylaxis provided. Bowel regimen instituted. Supportive care provided. Patient clinically stabilized and was ready for transfer back to longterm facility for continuation of care FINAL DIAGNOSES: Acute breakthrough seizure episode secondary to subtherapeutic Dilantin level Fever, most likely postictal Seizure disorder Chronic encephalopathy with declining cognition Suspected COVID-19 infection - ruled out Parkinson disease History of craniotomy Atelectasis Hyperlipidemia DISCHARGE MEDICATIONS: See Medication Reconciliation list. DISCHARGE INSTRUCTIONS: Patient was discharged to the longterm facility. Follow up with medical doctor at the facility. I have been assigned to dictate discharge summary for this account. I was not involved in the patient's management. Renu Coffey NP Jan 04, 2020 11:35
== END 2020-01-03 14:07 | DRG 139 ==
LOC: EDBD 12:47 → EMR 13:05 → EDBEDREQ 15:17 → 2E 17:00 → EDBEDREQ 23:28 → 2E 12-29 00:12
DX: J18.9 Pneumonia, unspecified organism (principal); G40.909 Epilepsy, unspecified, not intractable, without status epilepticus; G93.49 Other encephalopathy; G20 Parkinson's disease; Z66 Do not resuscitate; I10 Essential (primary) hypertension; E78.5 Hyperlipidemia, unspecified; N40.0 Benign prostatic hyperplasia without lower urinary tract symptoms; F29 Unspecified psychosis not due to a substance or known physiological condition; J98.11 Atelectasis
CPT/HCPCS: 36415; 70450; 71045; 80053; 80185; 80202; 80299; 81003; 82550; 82728; 83036; 83605; 83615; 83880; 84484; 85025; 85379; 86140; 87040; 87081; 87635; 93005; 95819; 96365; 96367; 96372; 96375; 99285; J1165; J7030